=== PATIENT | female | born 2000 | race Caucasian/White ===

== ENCOUNTER 2021-01-14 13:13 | Emergency (ER) | payer OTHER, SELFPAY ==
--- NOTE | 2021-01-14 13:21 | ED.GENADULT ---
HPI - General Adult General Chief complaint: Upper Respiratory Infection Stated complaint: URI Time Seen by Provider: 01/14/21 13:21 Source: patient Mode of arrival: ambulatory Limitations: no limitations History of Present Illness HPI narrative: 20-year-old female patient presents to the [facility] with complaints of cold symptoms that started yesterday. Patient states she has had a runny nose, slight cough and congestion. Patient denies any fevers, body aches or chills. Denies any ear pain. Patient also reports sore throat. Patient denies any abdominal pain, nausea, vomiting or diarrhea. Patient is currently 18 weeks . Patient states she took some [id number] cold and flu medication but not exactly sure what it was. Related Data Home Medications Medication Instructions Recorded Confirmed No Home Medications 01/14/21 01/14/21 Allergies Allergy/AdvReac Type Severity Reaction Status Date / Time No Known Allergies Allergy Verified 01/14/21 13:49 Review of Systems Review of Systems: Narrative: CONSTITUTIONAL: Denies fever, chills, or sweats. EYES: Denies visual changes, redness, or discharge. ENT: Positive rhinorrhea, congestion, sore throat, denies otalgia. CARDIOVASCULAR: Denies chest pain, palpitations, or edema. RESPIRATORY: Positive cough, denies dyspnea. GASTROINTESTINAL: Denies abdominal pain, nausea, vomiting, or diarrhea. GENITOURINARY: Denies dysuria or hematuria. SKIN: Denies rash or itching. MUSCULOSKELETAL: Denies back pain, joint pain, or myalgia. NEUROLOGIC: Denies headache, numbness, or weakness. PSYCHIATRIC: Denies anxiety or depression. PMFSH Past Medical History Medical History (Updated 01/14/21 @ 14:01 by ERIC Ty) Strep pharyngitis Surgical History Surgical History (Updated 01/14/21 @ 13:21 by ERIC Ty) Hx of tonsillectomy Comments At the time of my signature I agree with nursing past medical history, surgical, social, and family history. There is no relevant family history pertinent to the presenting complaint. Exam Narrative: Exam Narrative: GENERAL: Well-appearing, well-nourished, and in no acute distress. HEAD: Normocephalic, atraumatic. EYES: PERRLA and EOMI. ENT: Nares with erythema edema noted bilaterally, no rhinorrhea or epistaxis. Mucous membranes moist. Posterior pharynx no erythema, tonsillectomy, exudates or lesions present. Bilateral TMs are clear no erythema or foreign bodies in the canal. NECK: Supple. No lymphadenopathy CHEST: Clear to auscultation. No respiratory distress. HEART: Regular rate and rhythm. No murmur heard. Normal peripheral pulses. ABDOMEN: Soft, nontender, nondistended, normal active bowel sounds. EXTREMITIES: Normal range of motion. No edema. SKIN: Warm, dry, no rash. NEURO: No focal deficits. Alert and oriented x3. Course Reevaluation(s) Reevaluation #1: Reevaluated patient after swabs are resulted. Notified her that her bedside strep and her influenza are both negative. Discussed with her we will send the Covid PCR to the lab for testing and should receive results in the next 24 to 48 hours. Discussed with patient that she can take tgzy-hdv-[id number] medicine to help with her symptoms and I have provided her a safe uwqg-[id number] med list of things she can take including Claritin and Robitussin for her symptoms as well as Tylenol. Discussed with patient that she should otherwise follow-up with her [employer] or her primary doctor if she has worsening symptoms. Patient verbalized understanding denies any other questions or concerns at this time. Date: 01/14/21 Time: 14:06 Vital Signs Vital signs: Vital Signs Temperature 36.3 C L 01/14/21 13:35 Pulse Rate 87 01/14/21 13:35 Respiratory Rate 16 01/14/21 13:35 Blood Pressure 118/80 01/14/21 13:35 Pulse Oximetry 98 01/14/21 13:35 Temperature 36.3 C L 01/14/21 13:35 Pulse Rate 87 01/14/21 13:35 Respiratory Rate 16
[2021-01-14 13:35] VITALS: BP 118/80; PULSE 87; RESP 16; TEMP 36.3; O2SAT 98
[2021-01-15 19:35] LABS: SARS-CoV-2 RNA PCR Negative
== END 2021-01-14 14:05 | disposition home or self-care (01) ==
PROVIDERS: Emergency Provider Nurse Practitioner Family
DX: J06.9 Acute upper respiratory infection, unspecified (principal); Z20.822 Contact with and (suspected) exposure to COVID-19
CPT/HCPCS: 87081; 87804; 87880; 99213; C9803; G0463; U0003; U0005

== ENCOUNTER 2023-10-14 08:29 | Emergency (ER) | payer OTHER, SELFPAY ==
[2023-10-14 08:38] VITALS: BP 110/74; PULSE 100; RESP 16; TEMP 36.2; O2SAT 96
--- NOTE | 2023-10-14 08:54 | ED.URI ---
HPI - URI/Sore Throat General Chief Complaint: Upper Respiratory Infection Stated Complaint: throat/headache Source: patient and RN notes reviewed Mode of arrival: ambulatory Limitations: no limitations History of Present Illness HPI Narrative: Patient is a 22-year-old female who presents to the [facility] with complaints of sore throat, headache, and nasal drainage. Patient states that her symptoms started yesterday. She denies recent cough or fever. Denies chest pain or shortness of breath. She is unsure of any known sick contacts. She also denies abdominal pain, nausea, vomiting, diarrhea. Patient states that she usually has a sore throat and headache when she has tested positive for COVID in the past. Related Data Home Medications Medication Instructions Recorded Confirmed No Home Medications 01/14/21 10/14/23 Allergies Allergy/AdvReac Type Severity Reaction Status Date / Time No Known Allergies Allergy Verified 10/14/23 08:42 Review of Systems Review of Systems: CONSTITUTIONAL: Denies fever, chills, or sweats. EYES: Denies visual changes, redness, or discharge. ENT: Denies otalgia but reports sore throat CARDIOVASCULAR: Denies chest pain, palpitations, or edema. RESPIRATORY: Denies cough or dyspnea. GASTROINTESTINAL: Denies abdominal pain, nausea, vomiting, or diarrhea. GENITOURINARY: Denies dysuria or hematuria. SKIN: Denies rash or itching. MUSCULOSKELETAL: Denies back pain, joint pain, or myalgia. NEUROLOGIC: Denies numbness or weakness. Reports headache Pertinent positives per HPI. PMFSH Past Medical History Medical History Strep pharyngitis Surgical History Surgical History Hx of tonsillectomy Comments At the time of my signature, I reviewed and agree with the nursing past medical, surgical, social, and family history. There is no relevant family history pertinent to the patient complaint. Exam Narrative: GENERAL: This is a well-nourished, well-developed patient, in no apparent distress. HEAD: normocephalic, atraumatic. EYES: Sclera clear/white. Vision is grossly intact. EARS: External ears normal, auditory canals clear and without drainage, TMs normal without perforation. Hearing grossly intact. NOSE: External nose normal with no obvious nasal discharge, nares without redness, no rhinorrhea. THROAT: Mucous membranes moist, Oropharyngeal erythema without exudate or ulceration NECK: Neck supple, non-tender without lymphadenopathy, masses or thyromegaly. CARDIOVASCULAR: Regular rate and rhythm without murmurs, gallops, or rubs. RESPIRATORY: Clear to auscultation. Breath sounds equal bilaterally. No wheezes, rales, or rhonchi. GASTROINTESTINAL: Abdomen soft, non-tender, nondistended. Bowel sounds are active. No hepato-splenomegaly, or palpable masses. No guarding. SKIN: warm, intact with no suspicious lesions or rash, good texture and turgor. NEURO: awake, alert, and oriented to person, place and time. There were no obvious focal neurologic abnormalities. Course Course Level of Care: Express Care Visit Vital Signs Vital signs: Vital Signs Temperature 97.2 F L 10/14/23 08:38 Pulse Rate 100 10/14/23 08:38 Respiratory Rate 16 10/14/23 08:38 Blood Pressure 110/74 10/14/23 08:38 Pulse Oximetry 96 10/14/23 08:38 Oxygen Delivery Room Air 10/14/23 08:38 Temperature 97.2 F L 10/14/23 08:38 Pulse Rate 100 10/14/23 08:38 Respiratory Rate 16 10/14/23 08:38 Blood Pressure 110/74 10/14/23 08:38 Pulse Oximetry 96 10/14/23 08:38 Oxygen Delivery Room Air 10/14/23 08:38 Reviewed MDM - URI/Sore Throat MDM Narrative Medical decision making narrative: Rapid strep is negative in the office; however we will send to the lab for confirmation; there is a small percentage chance that it can come back positive; if it is, we will call you in 2
== END 2023-10-14 09:09 | disposition home or self-care (01) ==
PROVIDERS: Emergency Provider Nurse Practitioner; PCP Family Medicine
DX: B34.9 Viral infection, unspecified (principal)
CPT/HCPCS: 87081; 87426; 87880; 99213; C9803; G0463

== ENCOUNTER 2024-02-18 18:57 | Emergency (ER) | payer OTHER, SELFPAY ==
[2024-02-18 19:01] VITALS: BP 116/67; PULSE 84; RESP 16; TEMP 36.4; O2SAT 99
--- NOTE | 2024-02-18 19:07 | ED.SKABFB ---
HPI - Skin/Abscess/Foreign Bdy General Chief complaint: Wound/Laceration Stated complaint: Insect Bite Time Seen by Provider: 02/18/24 19:20 Source: patient and RN notes reviewed Mode of arrival: ambulatory Limitations: no limitations History of Present Illness HPI narrative: 23-year-old female presents with concern of for insect bites. She reports she noticed 1 on her leg was tender with a bruise. She is not sure what bit her. She denies any general malaise, fever, chills, redness, warmth, drainage. The by to 3-day-old MD complaint: insect bite/sting Related Data Home Medications Medication Instructions Recorded Confirmed sumatriptan succinate 100 mg tablet mg PO 02/18/24 Allergies Allergy/AdvReac Type Severity Reaction Status Date / Time No Known Allergies Allergy Verified 02/18/24 19:02 Review of Systems Review of Systems: CONSTITUTIONAL: Denies malaise, chills, sweats, or fever. EYES: Denies redness, or discharge. ENT: Denies rhinorrhea, congestion, swollen lips, swollen tongue CARDIOVASCULAR: Denies chest pain, palpitations, or edema. RESPIRATORY: Denies cough or dyspnea. GASTROINTESTINAL: Denies abdominal pain, nausea, vomiting SKIN: Reports four insect bites MUSCULOSKELETAL: Denies joint pain or myalgia. NEUROLOGIC: Denies headache. All systems reviewed & are unremarkable except as noted in HPI and below PMFSH Past Medical History Medical History Strep pharyngitis Surgical History Surgical History Hx of tonsillectomy Comments At time of signature, agree with nursing past medical, surgical, social and family history. There is no relevant family history pertinent to the presenting complaint Exam Narrative: GENERAL: Well-appearing, well-nourished, and in no acute distress. HEAD: Normocephalic, atraumatic. EYES: PERRLA, conjunctivae clear, and EOMI. ENT: Mucous membranes moist. Oropharynx without edema, erythema or lesions. NECK: Supple. No lymphadenopathy CHEST: Clear to auscultation. No respiratory distress. HEART: Regular rate and rhythm. SKIN: Warm, dry. For pinpoint scabbed areas noted on the left side of the body scattered on the left arm and leg. Bite on the left eye is surrounded by an annular area of ecchymosis approximately 4 cm in diameter with a clear center. Inner thigh bite is also surrounded by a smaller in your lower area of ecchymosis with a clear center. No redness, warmth, induration, edema or drainage. NEURO: Alert and oriented x3. PSYCH: Normal mood and affect Course Course Emergency Course: Patient is aware of diagnosis, understands and agrees to treatment plan. Anticipatory guidance given. Patient agrees to follow-up as directed and is aware of reasons to seek care at the emergency department. Portions of this record may have been created with voice recognition software Level of Care: Express Care Visit Vital Signs Vital signs: Vital Signs Temperature 97.6 F 02/18/24 19:01 Pulse Rate 84 02/18/24 19:01 Respiratory Rate 16 02/18/24 19:01 Blood Pressure 116/67 02/18/24 19:01 Pulse Oximetry 99 02/18/24 19:01 Oxygen Delivery Room Air 02/18/24 19:01 Temperature 97.6 F 02/18/24 19:01 Pulse Rate 84 02/18/24 19:01 Respiratory Rate 16 02/18/24 19:01 Blood Pressure 116/67 02/18/24 19:01 Pulse Oximetry 99 02/18/24 19:01 Oxygen Delivery Room Air 02/18/24 19:01 Reviewed. MDM - Skin/Abscess/Foreign Bdy MDM Narrative Medical decision making narrative: Does not appear at this time to be erythema multiforme, bullous, SJS, TEN; no evidence at this time to suggest RMSF, endocarditis or Lyme disease; patient looks well, nontoxic and is tolerating oral intake; no neurologic signs or symptoms; no headache, photophobia or neck pain; afebrile; appropriate for initial outpatient treatment; discussed the importa
== END 2024-02-18 19:30 | disposition home or self-care (01) ==
PROVIDERS: Emergency Provider Nurse Practitioner; PCP Family Medicine
DX: S00.86XA Insect bite (nonvenomous) of other part of head, initial encounter (principal); S40.862A Insect bite (nonvenomous) of left upper arm, initial encounter; S80.862A Insect bite (nonvenomous), left lower leg, initial encounter; W57.XXXA Bitten or stung by nonvenomous insect and other nonvenomous arthropods, initial encounter
CPT/HCPCS: 99211; G0463

== ENCOUNTER 2024-05-19 16:17 | Emergency (ER) | payer OTHER, SELFPAY ==
[2024-05-19 16:21] VITALS: BP 107/69; PULSE 104; RESP 16; TEMP 36.6; O2SAT 99
--- NOTE | 2024-05-19 16:22 | ED.URI ---
HPI - URI/Sore Throat General Chief Complaint: Upper Respiratory Infection Stated Complaint: Cough/Headache Time Seen by Provider: 05/19/24 17:14 Source: patient and RN notes reviewed Mode of arrival: ambulatory Limitations: no limitations History of Present Illness HPI Narrative: 23-year-old female presents with concern for cough for 1 week, headache for 2 days. She reports history of migraines, she took her migraine medicine without relief. She denies nasal congestion, rhinorrhea, sore throat, fever, body aches, chills, sweats, nausea, vomiting, diarrhea MD elicited complaint: cough and other (headache) Related Data Home Medications Medication Instructions Recorded Confirmed sumatriptan succinate 100 mg tablet mg PO 02/18/24 Allergies Allergy/AdvReac Type Severity Reaction Status Date / Time No Known Allergies Allergy Verified 02/18/24 19:02 Review of Systems Review of Systems: CONSTITUTIONAL: Denies malaise, chills, sweats, or fever. EYES: Denies visual changes, redness, or discharge. ENT: Denies rhinorrhea, congestion, sinus pain, otalgia and sore throat. CARDIOVASCULAR: Denies chest pain, palpitations, or edema. RESPIRATORY: Reports cough. Denies dyspnea. GASTROINTESTINAL: Denies abdominal pain, nausea, vomiting, diarrhea SKIN: Denies rash or itching. MUSCULOSKELETAL: Denies myalgia. NEUROLOGIC: Reports headache. All systems reviewed & are unremarkable except as noted in HPI and below PMFSH Past Medical History Medical History Strep pharyngitis Surgical History Surgical History Hx of tonsillectomy Comments At time of signature, agree with nursing past medical, surgical, social and family history. There is no relevant family history pertinent to the presenting complaint Exam Narrative: GENERAL: Well-appearing, well-nourished, and in no acute distress. HEAD: Normocephalic EYES: PERRLA, conjunctivae clear ENT: Nares clear. Mucous membranes moist. TM pearly whitney with dull light reflex bilaterally; no tragal tenderness. Oropharynx not erythematous without lesions. Tonsils not enlarged and without exudate, no drooling, no hoarseness, no trismus, uvula midline. NECK: Supple. No lymphadenopathy CHEST: Clear to auscultation, breath sounds equal. No wheezing, rhonchi, rales, or stridor. No respiratory distress, speaks in full sentences. HEART: Regular rate and rhythm. No murmur heard. SKIN: Warm, dry, no rash. NEURO: Alert and oriented x3. No focal deficits, cranial nerves 2-12 grossly intact PSYCH: Normal mood and affect Course Course Emergency Course: Patient is aware of diagnosis, understands and agrees to treatment plan. Anticipatory guidance given. Patient agrees to follow-up as directed and is aware of reasons to seek care at the emergency department. Portions of this record may have been created with voice recognition software Level of Care: Express Care Visit Vital Signs Vital signs: Vital Signs Temperature 98 F 05/19/24 16:21 Pulse Rate 104 H 05/19/24 16:21 Respiratory Rate 16 05/19/24 16:21 Blood Pressure 107/69 05/19/24 16:21 Pulse Oximetry 99 05/19/24 16:21 Oxygen Delivery Room Air 05/19/24 16:21 Temperature 98 F 05/19/24 16:21 Pulse Rate 104 H 05/19/24 16:21 Respiratory Rate 16 05/19/24 16:21 Blood Pressure 107/69 05/19/24 16:21 Pulse Oximetry 99 05/19/24 16:21 Oxygen Delivery Room Air 05/19/24 16:21 Reviewed. MDM - URI/Sore Throat MDM Narrative Medical decision making narrative: Differential diagnosis considered: Hu virus, strep pharyngitis, allergic rhinitis, upper respiratory tract infection, sinusitis, rhinosinusitis, nasopharyngitis. viral pharyngitis, otitis media, otitis externa, pneumonia, bronchitis, viral cough syndrome, viral syndrome, and influenza. Exam findings show no acute concerns or change
== END 2024-05-19 17:25 | disposition home or self-care (01) ==
PROVIDERS: Emergency Provider Nurse Practitioner
DX: R05.9 Cough, unspecified (principal); G43.909 Migraine, unspecified, not intractable, without status migrainosus
CPT/HCPCS: 99213; G0463

== ENCOUNTER 2024-11-09 08:45 | Emergency (ER) | payer OTHER, SELFPAY ==
--- NOTE | ~2024-11-09 | XR_ITS ---
EXAMINATION: XR chest 2V DATE: 11/09/2024 09:50 INDICATION: Pneumonia exposure TECHNIQUE: PA and lateral views of the chest were obtained. COMPARISON: None FINDINGS: There are patchy airspace opacities in the basilar right lower lobe suspicious for pneumonia. Right l jazzy is clear. No pulmonary edema, pleural effusion or pneumothorax. The cardiomediastinal silhouette is normal. Visualized bones and soft tissues are unremarkable. IMPRESSION: 1. Patchy airspace opacity right lower lobe with appearance favoring pneumonia over atelectasis. Reviewed, dictated and finalized at location A. FILTER OPERATOR
[2024-11-09 08:52] VITALS: BP 110/76; PULSE 122; RESP 18; TEMP 36.7; O2SAT 100
--- NOTE | 2024-11-09 09:19 | ED.URI ---
HPI - URI/Sore Throat General Chief Complaint: Upper Respiratory Infection Stated Complaint: fever/cough/abdo pain Time Seen by Provider: 11/09/24 09:19 Source: patient, RN notes reviewed and old records reviewed Mode of arrival: ambulatory Limitations: no limitations History of Present Illness HPI Narrative: 23-year-old female to Express Care with complaint of headache, cough, nausea, fever, body aches since Friday. Patient reports that her 2 children are currently at home being treated for pneumonia. Patient denies shortness of breath, difficulty swallowing, chest pain, allergies, pertinent medical history. Patient tolerate fluids by mouth. Patient resting in exam room in no acute distress. Respirations even and nonlabored. Patient able to speak in complete sentences without difficulty. Related Data Home Medications ?Medication ?Instructions ?Recorded ?Confirmed ?Last Taken ?Type NO HOME MEDS 11/09/24 Unknown History Allergies Allergy/AdvReac Type Severity Reaction Status Date / Time No Known Allergies Allergy Verified 11/09/24 09:10 Review of Systems Review of Systems: All systems reviewed & are unremarkable except as noted in HPI and below Constitutional: Constitutional: Reports as per HPI, Reports body ache(s), Reports chills, Reports fever(s) and Reports headache(s) Eyes: Eyes: Reports no additional eye complaints ENT: Reports system reviewed and no additional complaints, except as documented Cardiovascular: Cardiovascular: Reports no additional cardiovascular complaints, Denies chest pain and Denies dyspnea Respiratory: Respiratory: Reports as per HPI, Reports cough and Denies dyspnea Gastrointestinal: Gastrointestinal: Reports as per HPI and Reports nausea Musculoskeletal: Musculoskeletal: Reports no additional musculoskeletal complaints Neurologic: Reports system reviewed and no additional complaints, except as documented Psychiatric: Psychiatric: Reports no additional psychiatric complaints PMFSH Past Medical History Medical History Headache Strep pharyngitis Surgical History Surgical History Hx of tonsillectomy Family History Family History Father Alcoholism Hypertension Diabetes mellitus Grandparent Hypertension Diabetes mellitus Depression Social History Social History Smoking status: Never smoker Comments At the time of my signature, I reviewed and agree with the nursing past medical, surgical, social, and family history. There is no relevant family history pertinent to the patient complaint. Exam Const: General: cooperative, no acute distress, alert, tired appearing, uncomfortable and well nourished Nutritional Appearance: well nourished Orientation/consciousness: patient oriented x3 Limitations: no limitations HENMT: Head: normal to inspection Ears: external ears normal Face/Nose/Sinus: Normal external nose present, Normal nares present, normal facial exam, No erythema and No edema Face and sinus: normal facial exam, no erythema and no edema Mouth: Yes Normal oral and palatal mucosa present Eyes: General: appearance normal, both eyes and all related structures Neck: Neck: normal visual inspection, full ROM and no meningeal signs Lymphatic: no lymphadenopathy noted and no lymphedema noted Chest: Chest palpation & inspection: normal inspection of the chest Resp: Effort & Inspection: normal respiratory effort and able to speak in complete sentences Auscultation: clear to auscultation bilaterally and diminished lung sounds on the right Cardio: Jugular venous distension: no JVD Rate: regular rate Rhythm: regular rhythm Back/Spine/Pelvis: Cervical Spine: cervical ROM normal Skin: General skin exam: normal color, no rashes or lesions noted and turgor normal Neuro: General: patient oriented x3, gait normal, moves all extremities and no meningeal signs Speech: normal speech Gait exam (Neuro): Normal gait present Extrem: General: normal to inspection, full ROM and capillary refill normal Psych: Appearance: grossly normal and well kempt Course Course Emergency Course: Some parts of this dictation were generated by voice recognition software and may contain typographical and/or grammatical inaccuracies. Level of Care: Express Care Visit Vital Signs Vital signs: Vital Signs Temperature 36.7 C 11/09/24 08:52 Pulse Rate 122 H 11/09/24 08:52 Respiratory Rate 18 11/09/24 08:52 Blood Pressure 110/76 11/09/24 08:52 Pulse Oximetry 100 11/09/24 08:52 Oxygen Delivery Room Air 11/09/24 08:52 Temperature 36.7 C 11/09/24 08:52 Pulse Rate 122 H 11/09/24 08:52 Respiratory Rate 18 11/09/24 08:52 Blood Pressure 110/76 11/09/24 08:52 Pulse Oximetry 100 11/09/24 08:52 Oxygen Delivery Room Air 11/09/24 08:52 reviewed MDM - URI/Sore Throat MDM Narrative Medical decision making narrative: 23-year-old female to Express Care with complaint of headache, cough, nausea, fever, body aches since Friday. Patient reports that her 2 children are currently at home being treated for pneumonia. Patient denies shortness of breath, difficulty swallowing, chest pain, allergies, pertinent medical history. Patient tolerate fluids by mouth. Patient resting in exam room in no acute distress. Respirations even and nonlabored. Patient able to speak in complete sentences without difficulty. On exam, decreased lower right lung sounds. Exam otherwise unremarkable. Radiology impression: Patchy airspace opacity right lower lobe with appearance favoring pneumonia over atelectasis. Patient is sitting comfortably in exam room nontoxic in appearance. Patient appropriate for outpatient treatment and follow-up. Discharge instructions reviewed with patient, as well as provided in writing per nursing staff. The instructions also include specific and strict return/GO TO THE ER as well as f/u information. All questions have been answered, and the patient deny any further questions with discharge and discharge plan. Some parts of this dictation were generated by voice recognition software and may contain typographical and/or grammatical inaccuracies. Differential Diagnosis Differential diagnosis: Likely upper respiratory infection, croup, otitis media, sinusitis, viral infection, bronchitis, influenza and pharyngitis Lab Data Labs: Lab Results 11/09/24 Range/Units 09:36 POC Urine HCG, Qual Negative (Negative) Imaging Data Radiologist's impression: EXAMINATION: XR chest 2V DATE: 11/09/2024 09:50 INDICATION: Pneumonia exposure TECHNIQUE: PA and lateral views of the chest were obtained. COMPARISON: None FINDINGS: There are patchy airspace opacities in the basilar right lower lobe suspicious for pneumonia. Right lung is clear. No pulmonary edema, pleural effusion or pneumothorax. The cardiomediastinal silhouette is normal. Visualized bones and soft tissues are unremarkable. IMPRESSION: 1. Patchy airspace opacity right lower lobe with appearance favoring pneumonia over atelectasis. Discharge Plan Discharge Clinical Impression: Pneumonia Patient Disposition: Home, Self-Care Condition: Stable Instructions: Pneumonia (ED) Additional Instructions: -Alternate Tylenol and Motrin per package directions for fever or pain. -Antihistamine medication such as Benadryl at night and Zyrtec/Claritin/Taty during the day can help improve symptoms. -Use Flonase twice a day for 5 days then daily to help reduce the inflammation and dry up your sinuses. -You can also use Sudafed or Mucinex. Be sure to drink plenty of water with these medications at least 8 ounces with every dose and it is important to drink 8 to 10 glasses of water per day. Water is a natural decongestant -Eat and drink things that are easy to swallow, like tea or soup, or popsicles. -Oral rinses such as: Salt water gargles and/or may use topical anesthetic (eg. Chloraseptic spray) or lozenges to relieve dryness or throat pain). -Frequent hand washing or hand tension worker is one of the best ways to prevent spread of infection. -Using a vaporizer or humidifier at night will also help thin secretions and help with coughing up phlegm. -Follow up with primary care provider in 2-3 days if condition is not improving; or seek ER visit if you have trouble breathing, cannot drink enough fluids, have muffled voice, difficulty opening your mouth, or severe swelling. Patient Language: Serbian Prescriptions: New azithromycin 250 mg tablet 250 mg PO DAILY Qty: 6 0RF Rx Instructions: 250 mg orally. Take TWO tablets today, then one tablet daily for 4 days. amoxicillin 875 mg tablet 875 mg PO Q12H Qty: 20 0RF No Action NO HOME MEDS Follow-up/Referrals: Nereida Smith MD [Primary Care Provider] - Stand Alone Forms: Work/School Release IP
[2024-11-09 09:43] LABS: BEDSIDEPREGUCG Negative (Negative)
== END 2024-11-09 10:05 | disposition home or self-care (01) ==
PROVIDERS: Emergency Provider Nurse Practitioner Family; PCP Family Medicine
DX: J18.9 Pneumonia, unspecified organism (principal)
CPT/HCPCS: 71046; 81025; 99213; G0463

== ENCOUNTER 2025-02-09 12:37 | Outpatient (CLI) | payer OTHER, SELFPAY ==
[2025-02-09 13:27] LABS: Alanine Aminotransferase 13 U/L (6-35); Albumin Level 4.3 g/dL (3.5-5.1); Alkaline Phosphatase 60 U/L (38-126); Anion Gap 9 mmol/L (4-12); Aspartate Amino Transferase 17 U/L (14-36); Bilirubin,Total 0.9 mg/dL (0.2-1.3); Blood Urea Nitrogen 11 mg/dL (7-17); Calcium 9.1 mg/dL (8.4-10.2); Carbon Dioxide 29 mmol/L (22-30); Chloride 105 mmol/L (98-107); Estimated Glomerular Filt Rate > 60; Glucose 79 mg/dL (65-110); Potassium 4.5 mmol/L (3.4-5.0); Sodium 143 mmol/L (137-145)
[2025-02-09 13:34] LABS: SPREG INTERNAL CONTROL Positive; Serum Qual hCG Negative
--- OUTSIDE RECORDS SUMMARY | 2025-02-09 13:53 | XMS_ITS | Clinical Summary ---
Author Organization [facility] Address [address] [place] [address] Care Team Providers Care Mixer Operator Vacuum Pan Salt Name Role Phone No, Physician Unavailable Contreras Jung MD Primary Care Provider [phone]- [phone] Allergies No known active allergies Medications SUMAtriptan (IMITREX) 100 mg tablet TAKE 1 TABLET EVERY DAY BY ORAL ROUTE NEEDED FOR 9 DAYS. 4 Active rizatriptan ARTIFICIAL FLOWERS STARCHER (MAXALT-ARTIFICIAL FLOWERS STARCHER) 10 mg disintegrating tablet DISSOLVE 1 TABLET ON TONGUE AND SWALLOW EVERY DAY DIRECTED FOR 9 DAYS 4 Active ergocalciferol (Vitamin D2) 50,000 unit capsuleIndications: Vitamin D Deficiency Take 1 capsule (50,000 Units total) by mouth once a week 12 capsule 4 Active norethindrone-e.est radioL-iron (LOESTIN 24 FE) 1 mg-20 mcg (24)/75 mg (4) per tablet Take 1 tablet by mouth daily 84 tablet 2 4 07/14/20 25 Active montelukast (SINGULAIR) 10 mg tablet Take 1 tablet (10 mg total) by mouth nightly at bedtime. 4 Active Active Problems Problem Noted Date Diagnosed Date Anxiety and depression 10/18/2022 Acne 09/20/2014 Resolved Problems Problem Noted Date Diagnosed Date Resolved Date Positive GBS test 04/22/2019 01/15/2021 Vaginal delivery 01/15/2021 38 weeks gestation of 01/15/2021 Vaginal delivery 07/30/2021 39 weeks gestation of 07/30/2021 Immunizations Immunization Administration Dates Next Due MMR 06/16/2021 Tdap 04/06/2021,03/29/2019 Surgical History Surgery Date Site/Laterality Comments STOMACH SURGERY had a quarter removed from her stomach TONSILLECTOMY 12/01/2006 - 11/30/2007 Family History Medical History Relation Name Comments Kidney disease Father Marbin Relation Name Status Comments Father Marbin Alive Stage 3 Kidney Failure Social History Tobacco Use Types Packs/Day Years Used Date Smoking Tobacco: Never Smokeless Tobacco: Never Tobacco Cessation:Counseling Given: Not Answered Alcohol Use Standard Drinks/Week Comments Not Currently 0 (1 standard drink = 0.6 oz pur e alcohol) AUDIT-C Answer Date Recorded Q1: How often do you have a drink containing alc ohol? Never 05/15/2021 Average Number of Drinks Not on file 021 Q3: How often do you have si x or more drinks on one occasion? Never 05/15/2021 PHQ-2 Answer Date Recorded PHQ-2 Total Score (If total score is 3 or more points, staff should administer the PHQ-9) 0 03/08/2024 Personal Safety Answer Date Recorded Getting School Help Needed Not on file 02/09 Comments No Sex and Gender Information Value Date Recorded Sex Assigned at Not on file Legal Sex Female 9:53 AM SHEEP OR CALF GRADER Gender Identity Not on file Sexual Orientation Not on file Obstetrics History Para Term AB IAB SAB Ectopic Multiple Livin g Live Births 2 2 2 0 0 0 0 0 0 2 2 Date Outcome GA Total Labor Labor/2nd/3rd Weight Sex Type Anes PTL Ayah A1 A5 Name Clin 2018 Term 38w 6d 4h 50m 3h 16m/1h 29m/0h 05m 2.726 kg (6 lb 0.2 oz) M Vag-S pont Epidur al Livin g 8 9 MONTRELL DELGADO Joseph Mark, MD Complications:None Delivery Location:[facility] ([facility]) 2020 Term 39w 0d 2h 00m 1h 10m/0h 45m/0h 05m 2.884 kg (6 lb 5.7 oz) F Vag-S pont Epidur al N Livin g 8 9 FABRIZIO DELGADO Joseph Mark, MD Complications:None Delivery Location[facility] ([facility]) Last Filed Vital Signs Vital Sign Reading Time Taken Comments Blood Pressure 110/72 09/22/2024 6:01 PM CDT Pulse 75 09/22/2024 6:01 PM CDT Temperature 36.2 C (97.2 F) 09/22/2024 6:01 PM CDT Respiratory Rate 14 09/22/2024 6:01 PM CDT Oxygen Saturation 99% 09/22/2024 6:01 PM CDT Inhaled Oxygen Concentration - - Weight 73 kg (161 lb) 09/22/2024 6:01 PM CDT Height 167.6 cm (5' 6 ) 09/22/2024 6:01 PM CDT Body Mass Index 25.99 09/22/2024 6:01 PM CDT Plan of Treatment Health Maintenance Due Date Last Done Comments Influenza Vaccine (#1) 2024 8, 09/12/2016, 09/26/2015, Additional history exists Cervical Cancer Screening 03/08/20252023, 10/18/2022, 12/12/2020 Depression Screening 03/08/2025 03/08/2024, 10/18/2022, 10/18/2022, Additional history exists Regular Well Visit/Exam 18-64 03/08/2025 03/08/2024, 10/18/2022 DTaP/Tdap/Td Vaccine (9 - Td or Tdap) 04/06/2031 04/06/2021, 03/29/2019, 08/22/2009, Additional history exists Hepatitis B Screening Completed 03/22/2002 , 09/25/1999, 01/17/1999, Additional history exists Varicella Vaccines Completed 08/13/2008, 03/22/2002 HPV Vaccines Completed 10/14/2016, 01/2016, 12/19/2015 Hepatitis C Screening Completed 01/31/2021, 018 Pneumococcal vaccine <65 Aged Out No longer eligible based on patient's age to complete this topic Procedures Procedure Name Priority Date/Time Associated Diagnosis Comments PAP AND HPV, REFLEX TO HPV GENOTYPES Routine 03/08/2024 2:30 PM CDT Well woman exam HEPATITIS C ANTIBODY Routine 01/31/2021 2:47 PM SHEEP OR CALF GRADER Encounter for supervision of other normal in first trimester 12 weeks gestation of from Last 3 Months or Most Recently Relevant to Health Maintenance Results * Pap and HPV, reflex to HPV Genotypes (03/08/2024 2:30 PM CDT) CLINICAL INFORMATION: [facility] Comment:Routine exam LMP [facility] Comment:[phone] Previous Pap [facility] Comment:NONE GIVEN Prev. Bx [facility] Comment:NONE GIVEN SOURCE: [facility] Comment:Cervix, Endocervix Pap, specimen adequacy [facility] Comment: Satisfactory for evaluation. Endocervical/transformation zone component present. HPV interp [facility] Comment: Cytology Results: Negative for intraepithelial lesion or malignancy. COMMENTS [facility] Comment: This Pap test has been evaluated with computer assisted technology. Container Packer Operator [facility] Comment: MMD, CT(ASCP) CT Screening Location: [place] [address] Comment [facility] Comment: EXPLANATORY NOTE: The Pap is a screening test for cervical cancer. It is not a diagnostic test and is subject to false negative and false positive results. It is most reliable when a satisfactory sample, regularly obtained, is submitted with relevant clinical findings and history, and when the Pap result is evaluated along with historic and current clinical information. Human papillomavirus DNA, High Risk E6/E7 Not Detected NOT DETECTED [facility] /Wendy LACEY Comment: Not Detected High Risk HPV types (16,18,31,33,35,39,45,51,52, 56,58,59,66,68) were not detected. Other HPV types which cause anogenital lesions may be present. The significance of the other types of HPV in malignant processes has not been established. Methodology: Real Time PCR Thin prep 03/08/2024 2:30 PM CDT 03/09/2024 1:30 AM CDT Carmenza Grady RING MAKER LAB CYTOLOGY ORDERABLES Final Re [facility] [address] [place] [address] [facility] [address] [place] [address] * Hepatitis C antibody (01/31/2021 2:47 PM SHEEP OR CALF GRADER) Hep C Ab Nonreactive Nonreactive [facility] ([facility]) Comment: Interpretive Data Nonreactive: Antibodies to HCV not detected. Does NOT exclude the possibility of recent exposure to HCV. Equivocal: Equivocal for HCV antibodies. Supplemental molecular testing will be automatically performed to determine infection status in accordance with current CDC screening recommendations. Reactive: Positive for HCV antibodies. This may represent current or past HCV infection. Supplemental molecular testing will be automatically performed to determine current infection status in accordance with current CDC screening recommendations. Interpretive data was last revised on 2020. Testing performed by: [facility], [address] [place] [address]., [address] Blood specimen (specimen) 01/31/2021 2:47 PM SHEEP OR CALF GRADER 02/01/2021 9:25 AM SHEEP OR CALF GRADER Chanda Ivory RING MAKER LAB MICROBIOLOGY - GENERA L ORDERABLES Final Result [facility] (BLANCA) 1 [facility] Department [place] [address] from Last 3 Months or Most Recently Relevant to Health Maintenance Insurance [facility] MEDICAID [employer] [facility] BENEFITS [facility] Advance Directives For more information, please contact: [phone] * Full Code (Latest Code Status on File) Date Activated Date Inactivated Comments 06/15/2021 6:08 AM 06/17/2021 1:17 AM Full CPR in case of cardiopulmonary arrest * Full Code Date Activated Date Inactivated Comments 05/14/2019 5:57 PM 05/16/2019 5:50 PM * Full Code Date Activated Date Inactivated Comments 05/14/2019 5:09 PM 05/14/2019 5:57 PM Full CPR in case of cardiopulmonary arrest * Full Code Date Activated Date Inactivated Comments 05/14/2019 12:59 AM 05/14/2019 5:09 PM Full CPR in case of cardiopulmonary arrest Care Teams Mixer Operator Vacuum Pan Salt Relationship Specialty Start Date End Date Contreras Jung MD [facility] [place] [address] PCP - General Family Medicine 02/25/24 No, Physician 05/15/21
--- OUTSIDE RECORDS SUMMARY | 2025-02-09 13:53 | XMS_ITS | Referral Summary ---
Author Organization [facility] Address [address] [place] [address] Care Team Providers Care Manager Roofing Name Role Phone No, Physician Unavailable Contreras Jung MD Primary Care Provider [phone]- [phone] Allergies No known active allergies Medications SUMAtriptan (IMITREX) 100 mg tablet TAKE 1 TABLET EVERY DAY BY ORAL ROUTE NEEDED FOR 9 DAYS. 4 Active rizatriptan JACK STRIP ASSEMBLER (MAXALT-JACK STRIP ASSEMBLER) 10 mg disintegrating tablet DISSOLVE 1 TABLET [...] Dates Next Due MMR 06/16/2021 Tdap 04/06/2021,03/29/2019 Social History Tobacco Use Types Packs/Day Years [...] on file Legal Sex Female 9:53 AM PASTE UP COPY CAMERA OPERATOR Gender Identity Not on file Sexual Orientation Not on file Last Filed Vital Signs Vital Sign Reading [...] 09/22/2024 6:01 PM CDT Plan of Treatment Not on file Procedures Procedure Name Priority Date/Time Associated Diagnosis Comments PAP AND HPV, REFLEX TO HPV GENOTYPES Routine 03/08/2024 2:30 PM CDT Well woman exam HEPATITIS C ANTIBODY Routine 01/31/2021 2:47 PM PASTE UP COPY CAMERA OPERATOR Encounter for supervision of other normal in first trimester 12 weeks gestation of from Last 3 Months or Most Recently Relevant to Health Maintenance Results * Pap and HPV, reflex to HPV Genotypes (03/08/2024 2:30 PM CDT) CLINICAL INFORMATION: [facility] Comment:Routine exam LMP [facility] Comment:[phone] Previous Pap [facility] Comment:NONE GIVEN Prev. Bx [facility] Comment:NONE GIVEN SOURCE: [facility] Comment:Cervix, Endocervix Pap, specimen adequacy [facility] Comment: Satisfactory for evaluation. Endocervical/transformation zone component present. HPV interp [facility] Comment: Cytology Results: Negative for intraepithelial lesion or malignancy. COMMENTS [facility] Comment: This Pap test has been evaluated with computer assisted technology. Gunner'S Mate M [facility] Comment: MMD, CT(ASCP) CT Screening Location: [address], [place] [address] Comment [facility] Comment: EXPLANATORY NOTE: The Pap is a [...] High Risk E6/E7 Not Detected NOT DETECTED [facility] [place] [facility] [place] Comment: Not Detected High Risk HPV types (16,18,31,33,35,39,45,51,52, 56,58,59,66,68) were not detected. Other HPV types which cause anogenital lesions may be present. The significance of the other types of HPV in malignant processes has not been established. Methodology: Real Time PCR Thin prep 03/08/2024 2:30 PM CDT 03/09/2024 1:30 AM CDT Carmenza Grady HUSBANDRY PERSON LAB CYTOLOGY ORDERABLES Final Re sult [place] [address] [place] [address] Serious [place]/W[facility] [address] [place] [address] * Hepatitis C antibody (01/31/2021 2:47 PM PASTE UP COPY CAMERA OPERATOR) Hep C Ab Nonreactive Nonreactive CARMEN BRADY [...] revised on 2020. Testing performed by: [facility], [address] [place] [address]., [address] Blood specimen (specimen) 01/31/2021 2:47 PM PASTE UP COPY CAMERA OPERATOR 02/01/2021 9:25 AM PASTE UP COPY CAMERA OPERATOR Chanda Ivory HUSBANDRY PERSON LAB MICROBIOLOGY - GENERA L ORDERABLES Final Result [facility]Y (BLANCA) 1 [facility] Department [place] [address] from Last 3 Months or Most Recently Relevant to Health Maintenance Insurance [facility] MEDICAID IDPA [facility] BENEFITS [facility] Advance Directives For more information, please contact: [phone] * Full Code (Latest Code Status on [...] in case of cardiopulmonary arrest Care Teams Manager Roofing Relationship Specialty Start Date End Date Contreras Jung MD [address] [place] [address] [place] [address] PCP - General Family Medicine 02/25/24 No, Physician 05/15/21
--- OUTSIDE RECORDS SUMMARY | 2025-02-09 13:53 | XMS_ITS | Clinical Summary ---
Author Organization [facility] Address [address] [place] [address] Phone Care Team Providers Care Powerhouse Laborer Name Role Phone Keisha Randhawa MD Primary Care Provider Allergies No known active allergies Medications No known medications Active Problems No known active problems Social History Tobacco Use Types Packs/Day Years Used Date Smoking Tobacco: Never Smokeless Tobacco: Never Tobacco Cessation:Counseling Given: Not Answered Alcohol Use Standard Drinks/Week Comments Not Currently 0 (1 standard drink = 0.6 oz pur e alcohol) Sexually Active Control Partners Comments Not Currently Comments No Sex and Gender Information Value Date Recorded Sex Assigned at Not on file Legal Sex Female 7:19 PM CDT Gender Identity Not on file Sexual Orientation Not on file Last Filed Vital Signs Vital Sign Reading Time Taken Comments Blood Pressure 98/78 03/18/2023 8:24 AM CDT Pulse 106 03/18/2023 8:24 AM CDT Temperature 37.1 C (98.8 F) 03/18/2023 8:24 AM CDT Respiratory Rate 14 03/18/2023 8:24 AM CDT Oxygen Saturation 98% 03/18/2023 8:24 AM CDT Inhaled Oxygen Concentration - - Weight 64.4 kg (142 lb) 03/18/2023 8:24 AM CDT Height - - Body Mass Index - - Plan of Treatment Health Maintenance Due Date Last Done Comments Hepatitis C Virus (HCV) Screening 1998 Pap Smear 2019 Influenza Immunization (#1) 08/01/202410/31, 08/31/2018, 09/12/2016, Additional history exists SARS-COV-2 Immunization (2023-25 season) 2024 Respiratory Syncytial Virus (RSV) Immunization (Adult) (1 - 1-dose 75+ series) 2073 Hepatitis B Immunization Completed 002, 09/25/1999, 01/17/1999, Additional history exists Meningococcal Immunization (ACWY) Completed 12/19/2015, 08/10/2010 Human Papillomavirus (HPV) Immunization Completed 10/14/2016, 05/02/2016, 12/19/2015 DTaP/Tdap/Td Immunization Discontinued 2020, 03/29/2019, 08/22/2009, Additional history exists TdaP Immunization Completed 04/06/2021, , 08/22/2009 Pneumococcal Immunization Combined Aged Out No longer eligible based on patient's age to complete this topic Rotavirus Immunization Aged Out No lo nger eligible based on patient's age to complete this topic Insurance MEDICAID [employer] Care Teams Powerhouse Laborer Relationship Specialty Start Date End Date Keisha Randhawa MD [address] [facility] [facility] [address] G[address]IA [address] [place] [id number] PCP - General Pediatrics 11/10/18
== END 2025-02-09 12:38 | disposition home or self-care (01) ==
LOC: ANHLAB 12:38
PROVIDERS: PCP Family Medicine; Visit Provider Family Medicine
DX: R10.9 Unspecified abdominal pain (principal)
CPT/HCPCS: 36415; 80053; 84703

== ENCOUNTER 2025-06-27 08:01 | Emergency (ER) | payer OTHER, SELFPAY ==
[2025-06-27 08:06] VITALS: BP 104/69; PULSE 81; RESP 20; TEMP 36.6; O2SAT 100
--- OUTSIDE RECORDS SUMMARY | 2025-06-27 08:07 | XMS_ITS | Clinical Summary ---
Author Organization [facility] Address [address] [place] [address] Phone Care Team Providers Care Epic Cadence Specialists Name Role Phone Keisha Randhawa MD Primary [...] Comments Hepatitis C Virus (HCV) Screening 1998 SARS-COV-2 Immunization ( season) 2024 Influenza Immunization (#1) 08/01/202510/31, 08/31/2018, 09/12/2016, Additional history exists Respiratory Syncytial Virus (RSV) Immunization (Adult) (1 [...] Insurance MEDICAID [employer] Care Teams Epic Cadence Specialists Relationship Specialty Start Date End Date Keisha Randhawa MD [address] [facility] [address] G[address]IA [address] [place] [address] PCP - General Pediatrics 11/10/18
--- OUTSIDE RECORDS SUMMARY | 2025-06-27 08:07 | XMS_ITS | Data Portability ---
Author Organization [facility] [address], Main Office Address [address] [place] [address] Assessment No assessment recorded. Plan of Treatment Reminders Order Date Submit Date Provider Last Modified By Organization Details Last Modified Time Details Appointments None recorded. Lab None recorded. Referral None recorded. Procedures None recorded. Surgeries None recorded. Imaging XR, thoracic spine, 2 view 2022 023 [facility], [address] [place] [address] [place], [address], 3 14:58:15 XR, lumbosacral spine, 2 or 3 view 2022 023 [facility], [address] [place] [address] [place], [address], 3 14:56:40 Medication Orders Benadryl Allergy 25 mg tablet 2023 024 [facility] [address], [address], 4 11:39:41 Depo-Medrol 80 mg/mL suspension for injection 2023 024 [email or web address] Not available 4 11:47:53 prednisone 20 mg tablet 2023 024 [facility] [address], [address], 4 11:40:09 sumatriptan 100 mg tablet 2023 024 shaheed [address] [facility] [address], [address], 4 16:41:15 rizatriptan 10 mg disintegrat ing tablet [email or web address] [facility] [address], [address], 4 08:55:45 cyclobenzap rine 10 mg tablet 2022 023 [email or web address] 3 [id number], [address] , [place], [address], 3 06:39:57 Patient TargetsNo targets recorded. Patient InstructionsNo instructions recorded. Reason for Referral None Reported. Results Created Date Observation Date Name Description Value Unit Range Abnormal Flag Note LastModifiedBy Organization Detail LastModifiedTime 02/25/20 23 XR, thora cic spine , 3 view [facility] [address] [address] Patien t Name: JOSETTE DELGADO ion #: [id number] Sex: F : 2000 2 Locati on: RA2 Attend ing Physic jerry: ELKHAT IB, RUNDA Orderi Physic jerry: ELKHAT IB, RUNDA Exam Date: 023 1:25 PM Exam Name: XR T SPINE 3V Admitt ing Diagno sis(es ): RADIOL OGY REPORT - FINAL EXAM: XR T SPINE 3V HISTOR Y: pain 22-yea r-old female with mid to low back pain for the past 2 years after epidur al inject ion, no known injury . COMPAR BENNY: None availa ble. TECHNI QUE: Three views of the thorac ic spine were perfor med. FINDIN GS: No fractu re, listhe sis, or scolio sis are identi fied about the thorac ic spine. No signif icant degene rative change s. IMPRES CELSO: Unrema rkable radiog raphs of the thorac ic spine. Page 1 of 2 [facility] Brown dyer Name: JOSETTE DELGADO Access ion #: [id number] Sex: F : 2000 2 Exam Date: 023 1:25 PM Exam Name: XR T SPINE 3V Admitt ing Diagno sis(es ): Create d and electr onical ly signed by: Saeid english MD Signed Date: 023 1:53 PM (CT) Dictat ed by: Saeid english MD DD: 1:53 PM (CT) DT: 1:53 PM (CT) Page 2 of [address] (Imaging) [address] [place], [address], 02/24/2023 19:09:31 02/25/20 23 XR, thora cic spine , 3 view [facility] [address] [place] [address] [phone] Brown dyer Name: JOSETTE DELGADO Access ion #: [id number] Sex: F : 2000 2 Locati on: RA2 Attend ing Physic jerry: ELKHAT IB, RUNDA Orderi Physic jerry: ELKHAT IB, RUNDA Exam Date: 023 1:25 PM Exam Name: XR T SPINE 3V Admitt ing Diagno sis(es ): RADIOL OGY REPORT - FINAL EXAM: XR T SPINE 3V HISTOR Y: pain 22-yea r-old female with mid to low back pain for the past 2 years after epidur al inject ion, no known injury . COMPAR BENNY: None availa ble. TECHNI QUE: Three views of the thorac ic spine were perfor med. FINDIN GS: No fractu re, listhe sis, or scolio sis are identi fied about the thorac ic spine. No signif icant degene rative change s. IMPRES CELSO: Unrema rkable radiog raphs of the thorac ic spine. Page 1 of 2 [facility] [place] Brown dyer Name: JOSETTE DELGADO Access ion #: [id number] Sex: F : 2000 2 Exam Date: 023 1:25 PM Exam Name: XR T SPINE 3V Admitt ing Diagno sis(es ): Create d and electr onical ly signed by: Saeid english MD Signed Date: 023 1:53 PM (CT) Dictat ed by: Saeid english MD DD: 1:53 PM (CT) DT: 1:53 PM (CT) Page 2 of [address] (Imaging) [address] [place] [address], [address], 02/24/2023 19:09:31 02/25/20 23 XR, lumbo sacra l spine , 2 or 3 view [facility] L [address] [address] [phone] Brown dyer Name: JOSETTE DELGADO Access ion #: [id number] Sex: F : 2000 2 Locati on: RA2 Attend ing Physic jerry: ELKHAT IB, RUNDA Orderi Physic jerry: ELKHAT IB, RUNDA Exam Date: 023 1:25 PM Exam Name: XR L SPINE 2-3V Admitt ing Diagno sis(es ): RADIOL OGY REPORT - FINAL EXAM: XR L SPINE 2-3V HISTOR Y: pain 22-yea r-old female with low back pain for 2 years which began after epidur al inject ion, no recent injury . COMPAR BENNY: None availa ble. TECHNI QUE: AP and latera l views of the lumbar spine and spot latera l of the lumbos acral juncti on were perfor med. FINDIN GS: No fractu re or listhe sis of the lumbar spine. No signif icant degene rative change s. There is slight lumbar levosc oliosi s which may be positi onal in nature . Page 1 of 2 [facility] Patien t Name: JOSETTE DELGADO Access ion #: [id number] Sex: F : 2000 2 Exam Date: 023 1:25 PM Exam Name: XR L SPINE 2-3V Admitt ing Diagno sis(es ): IMPRES CELSO: No fractu re or signif icant degene rative change s about the lumbar spine. Create d and electr onical ly signed by: Saeid english MD Signed Date: 023 1:53 PM (CT) Dictat ed by: Saeid english MD DD: 023 1:53 PM (CT) DT: 1:53 PM (CT) Page 2 of [address] (Imaging) [address] [place], [address], 02/24/2023 19:09:32 02/25/20 23 02/24/2023 XR, thora cic spine , 2 view No observ ation record ed. [address] [place], [address], 02/24/2023 19:09:32 02/25/20 23 02/24/2023 XR, lumbo sacra l spine , 2 or 3 view No observ ation record ed. [email or web address] [facility] [address] [place] [address], [place], [address], 02/27/2023 09:02:56 Result Notes Documentation Provider Name and Address Organization Details Recorded Time Xr, Thoracic Spine, 3 View : [facility] [address] [place] [address] Patient Name: JOSETTE DELGADO Sex: F : 2000 Location: RA2 Attending Physician: CONTRERAS OLIVAS Ordering Physician: CONTRERAS OLIVAS Exam Date: 02/24/2023 1:25 PM Exam Name: XR T SPINE 3V Admitting Diagnosis(es): RADIOLOGY REPORT - FINAL EXAM: XR T SPINE 3V HISTORY: pain 22-year-old female with mid to low back pain for the past 2 years after epidural injection, no known injury. COMPARISON: None available. TECHNIQUE: Three views of the thoracic spine were performed. FINDINGS: No fracture, listhesis, or scoliosis are identified about the thoracic spine. No significant degenerative changes. IMPRESSION: Unremarkable radiographs of the thoracic spine. Page 1 of 2 [facility] Patient Name: JOSETTE DELGADO Sex: F : 2000 Exam Date: 02/24/2023 1:25 PM Exam Name: XR T SPINE 3V Admitting Diagnosis(es): Created and electronically signed by: Saeid Vargas MD Signed Date: 02/24/2023 1:53 PM (CT) Dictated by: Saeid Vargas MD (CT) (CT) Page 2 of 2 Contreras Jung MD [address], [address], [facility] 02/24/2023 19:09:31 Xr, Thoracic Spine, 3 View : [facility] [address] [place] [address] Patient Name: JOSETTE DELGADO Sex: F : 2000 Location: [facility] Attending Physician: CONTRERAS OLIVAS Ordering Physician: CONTRERAS OLIVAS Exam Date: 02/24/2023 1:25 PM Exam Name: XR T SPINE 3V Admitting Diagnosis(es): RADIOLOGY REPORT - FINAL EXAM: XR T SPINE 3V HISTORY: pain 22-year-old female with mid to low back pain for the past 2 years after epidural injection, no known injury. COMPARISON: None available. TECHNIQUE: Three views of the thoracic spine were performed. FINDINGS: No fracture, listhesis, or scoliosis are identified about the thoracic spine. No significant degenerative changes. IMPRESSION: Unremarkable radiographs of the thoracic spine. Page 1 of 2 [facility] Patient Name: JOSETTE DELGADO Sex: F : 2000 Exam Date: 02/24/2023 1:25 PM Exam Name: XR T SPINE 3V Admitting Diagnosis(es): Created and electronically signed by: Saeid Vargas MD Signed Date: 02/24/2023 1:53 PM (CT) Dictated by: Saeid Vargas MD (CT) (CT) Page 2 of 2 Contreras Jung MD [address] [place] [address], [address], [facility] 02/24/2023 19:09:31 Xr, Lumbosacral Spine, 2 Or 3 View : [address] [address] Patient Name: JOSETTE DELGADO Sex: F : 2000 Location: [facility] Attending Physician: CONTRERAS OLIVAS Ordering Physician: CONTRERAS OLIVAS Exam Date: 02/24/2023 1:25 PM Exam Name: XR L SPINE 2-3V Admitting Diagnosis(es): RADIOLOGY REPORT - FINAL EXAM: XR L SPINE 2-3V HISTORY: pain 22-year-old female with low back pain for 2 years which began after epidural injection, no recent injury. COMPARISON: None available. TECHNIQUE: AP and lateral views of the lumbar spine and spot lateral of the lumbosacral junction were performed. FINDINGS: No fracture or listhesis of the lumbar spine. No significant degenerative changes. There is slight lumbar levoscoliosis which may be positional in nature. Page 1 of 2 [facility] Patient Name: JOSETTE DELGADO Sex: F : 2000 Exam Date: 02/24/2023 1:25 PM Exam Name: XR L SPINE 2-3V Admitting Diagnosis(es): IMPRESSION: No fracture or significant degenerative changes about the lumbar spine. Created and electronically signed by: Saeid Vargas MD Signed Date: 02/24/2023 1:53 PM (CT) Dictated by: Saeid Vargas MD (CT) (CT) Page 2 of 2 Contreras Jung MD [address], [place], [address], [facility] [employer] 02/24/2023 19:09:32 Problems Name Problem SNOMED Code Status Onset Date Resolution Date Notes Provider Name and Address Organization Details Recorded Time Depressive disorder 13651319 Active 023 HARI Wilder, [place] [facility] [employer] [facility] 3 13:56:46 Anxiety 79419808 Active 023 HARI Wilder null, [employer] [facility] [employer] [facility] 3 13:56:52 Thoracic back pain 568666290 Active 023 Contreras Jung MD [address], [address], [place], [address], [employer] [facility] [employer] [facility] 3 14:10:50 Low back pain 259515225 Active 023 Contreras Jung MD [address], [place], [address], [employer] [facility] [employer] [facility] [employer] 3 14:10:59 Chronic low back pain 182359923 Active 023 Amarjit Cloud RN null, [employer] [facility] [employer] [facility] [employer] 3 09:03:09 Headache 97821450 Active 024 JOANN Malloy [address], [address], [place], [address], [employer] [facility] 4 10:09:10 Nausea 387971738 Active 024 JOANN Malloy [address], [address], [place], [address], [employer] 4 22:16:34 Insect bite - wound 691704601 Active 024 JOANN Malloy [address], [place], [address], [employer] 4 11:36:42 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 Procedures Surgical History Date Name Laterality Status Provider Name and Address Organization Details Recorded Time Tonsillectomy completed HARI Wilder [employer] 02/24/2023 13:57:27 Imaging Results None recorded. Procedure Notes None recorded. Medical Equipment None Reported. Allergies No known drug allergies Medications Name Sig Start Date Stop Date Status Note LastModified by Organization Details LastModified Time cyclobenzap rine 10 mg tablet TAKE 1 TABLET 3 TIMES A DAY BY ORAL ROUTE NEEDED. active Not Available Not Available No t Available amoxicillin 500 mg capsule TAKE 1 CAPSULE BY MOUTH TWICE A DAY FOR 10 DAYS active Not Available Not Available No t Available sumatriptan 100 mg tablet TAKE 1 TABLET EVERY DAY BY ORAL ROUTE NEEDED FOR 9 DAYS. active Not Available Not Available No t Available prednisone 20 mg tablet PLEASE SEE ATTACHED FOR DETAILED DIRECTION S active Not Available Not Available No t Available tramadol 50 mg tablet TAKE 1 TABLET BY MOUTH EVERY 4 HOURS NEEDED FOR PAIN 02/24 completed Not Available Not Available Not Available Depo-Medrol 80 mg/mL suspension for injection Take 1 mL by injection route. 2023 active Not Available Not Available Not Avai lable citalopram 20 mg tablet TAKE 1 TABLET BY MOUTH EVERY DAY 01/21 completed Not Available Not Available Not Available rizatriptan 10 mg disintegrat ing tablet DISSOLVE 1 TABLET ON TONGUE AND SWALLOW EVERY DAY DIRECTED FOR 9 DAYS 01/21 completed did not help Not Available Not Available Not Available Banophen 25 mg capsule TAKE 1-2 CAPSULES BY MOUTH AT BEDTIME NEEDED active Not Available Not Available No t Available ergocalcife rol (vitamin D2) 1,250 mcg (50,000 unit) capsule TAKE 1 CAPSULE BY MOUTH ONE TIME PER WEEK active Not Available Not Available No t Available ondansetron 4 mg disintegrat ing tablet PLACE 1 TABLET 3 TIMES A DAY BY TRANSLING UAL ROUTE NEEDED 01/21 completed Not Available Not Available Not Available amoxicillin 875 mg-potassiu m clavulanate 125 mg tablet TAKE 1 TABLET BY MOUTH TWICE A DAY FOR 10 DAYS 01/21 completed Not Available Not Available Not Available Benadryl Allergy 25 mg tablet 1 to 2 tabs po at bedtime as needed 2023 active Not Available Not Available Not Avai lable Blisovi 24 Fe 1 mg-20 mcg (24)/75 mg (4) tablet TAKE 1 TABLET BY MOUTH EVERY DAY 02/24 completed Not Available Not Available Not Available Vitals Date Recorded Body height Body mass index (BMI) Body weight Body temperature Heart rate Oxygen saturation Oxygen saturation in Arterial blood by Pulse oximetry Systolic And Diastolic Provider Name and Address Organization Details Last Updated DateTime 4 167.64 cm 26.6 kg/m2 71585.7 4 g 97.3 [degF] 92 /min 97 % 97 % 112/74 mm[Hg] Kenisha Jalloh MA [facility] [employer] [facility] 4 10:03:24 Date Recorded Body height Body mass index (BMI) Body weight Body temperature Heart rate Oxygen saturation Oxygen saturation in Arterial blood by Pulse oximetry Systolic And Diastolic Provider Name and Address Organization Details Last Updated DateTime 4 167.64 cm 27 kg/m2 98977.9 3 g 97.4 [degF] 76 /min 98 % 98 % 106/74 mm[Hg] Kareen Patel RN [facility] [employer] [facility] 4 08:57:04 Date Recorded Body height Body mass index (BMI) Body weight Body temperature Heart rate Respiratory rate Oxygen saturation Oxygen saturation in Arterial blood by Pulse oximetry Systolic And Diastolic Provider Name and Address Organization Details Last Updated DateTime 4 167.64 cm 26.8 kg/m2 03725.3 3 g 97.6 [degF] 64 /min 16 /min 98 % 98 % 116/76 mm[Hg] Kareen Patel RN [facility] [employer] [facility] 4 11:29:15 Date Recorded Body weight Body mass index (BMI) Body height Body temperature Heart rate Oxygen saturation Oxygen saturation in Arterial blood by Pulse oximetry Systolic And Diastolic Provider Name and Address Organization Details Last Updated DateTime 3 56952.2 6 g 24 kg/m2 167.64 cm 98.2 [degF] 73 /min 98 % 98 % 102/80 mm[Hg] HARI Wilder [facility] [employer] [facility] 3 14:00:44 Social History Question Answer Notes LastModified by [employer] Details LastModified Time Tobacco Smoking Status Never Smoker HARI Wilder null [facility] [employer] [facility] 02/24/2023 13:57:14 What Is Your Level Of Caffeine Consumption? None Information not available 01/21/2024 What Is The Highest Grade Or Level Of School You Have Completed Or The Highest Degree You Have Received? [id number] Information not available 01/21/2024 What Is Your Relationship Status? Single [email or web address] Information not available 01/21/2024 Are You Currently In School? No [email or web address] Information not available 01/21/2024 Sex: Unknown Functional Status Question Answer Note LastModified by [employer] Details LastModified Time Do you use any illicit or recreational drugs? No [email or web address] Information not available 01/21/2024 What is your level of alcohol consumption? None [email or web address] Information not available 01/21/2024 Are you currently employed? No [email or web address] Information not available 01/21/2024 Mental Status None recorded. Family History Relationship Description Onset Age of this Age Resolved Age Notes LastModified by Organization Details LastModified Time Father No current problems or disability [email or web address] Not available 02/24 13:56:59 Mother No current problems or disability [email or web address] Not available 02/24 13:56:59 Medical History Condition Response BLINDNESS N RHEUMATIC FEVER N KIDNEY STONES N BLADDER PROBLEMS N MRSA N OTHER # 1 N POLIO N LUNG DISEASE/DISORDER N HISTORY OF DRUG ABUSE N COPD N RADIATION / CHEMOTHERAPY N Other # 2 N BLOOD DISEASES N SURGERY N EAR OR HEARING PROBLEMS N MUMPS N SHINGLES N BOWEL PROBLEMS N FEMALE PROBLEMS / INFECTIONS N DEPRESSION (INCLUDING POST ) Y FAILED BACK SYNDROME N STROKE/TIA N THYROID DISEASE N ULCERS N BENIGN PROSTATIC HYPERPLASIA N MEASLES N CERVICALGIA N HYPOTENSION N TB SKIN TEST N MYOCARDIAL INFARCTION N PARAPELGIA N OBESITY N GERD/NAUSEA N ANEURYSM N URINARY/BLADDER/KIDNEY PROBLEMS N CORONARY ARTERY DISEASE (CAD) N MENIERE'S DISEASE N Do you have Advance directive? N ADDICTION CONCERNS N ENDOMETRIOSIS N USE OF BLOOD THINNERS N SKIN PROBLEMS N EMPHYSEMA N GASTROINTESTINAL DISORDER N PERIPHERAL ARTERY DISEASE N MUSCLE,JOINT OR BONE PROBLEMS N GASTROINTESTINAL BLEEDING N BLOOD CLOTS N ASTHMA N Abdominal Pain N CATARACTS N ARTERIAL INSUFFICIENCY N ERECTILE DYSFUNCTION N GI PROBLEMS N CHF N Low Testosterone N NEUROPATHY N INFERTILITY N AIDS/HIV N FRACTURES N CHEMOTHERAPY / RADIATION N VISION/EYE PROBLEMS N LIVER DISEASE N HYPERTENSION N TOURETTE'S N ANXIETY DISORDER Y BLOOD TRANSFUSION N ANEMIA/BLOOD DISORDER N CHRONIC EAR INFECTIONS N BRONCHITIS N TUBERCULOSIS N GLAUCOMA N FOOT PROBLEM N DIVERTICULITIS N CHICKENPOX N SLEEP APNEA N BACK INJECTIONS N ALLERGIES/HAYFEVER N INFECTIOUS DISEASE N HEART ARRHYTHMIA N PROSTATE N ESRD N INSOMNIA N HIGH CHOLESTEROL / HYPERLIPIDEMIA N HYPERTHYROIDISM N EYE PROBLEMS N PVD N EATING DISORDER N EDEMA N CHRONIC PAIN SYNDROME N CAROTID BLOCKAGE N CONSTIPATION N BACK / NECK PROBLEMS N HAVE YOU BEEN HOSPITALIZED OR SEEN IN [facility] IN THE PAST YEAR ? N ATHEROSCLEROSIS N BREAST PROBLEMS N DIALYSIS N POLYCYSTIC OVARIES N ECZEMA N FIBROMYALGIA N OSTEOPOROSIS N ARTHRITIS N NO SIGNIFICANT PAST MEDICAL HISTORY N APPENDICITIS N DIABETES, TYPE N BAD TEETH N VON WILLIBRAND'S DISEASE N HEARTBURN / REFLUX N ADD/ADHD N AUTISM SPECTRUM DISORDER (ASD) N POST LAMINECTOMY SYNDROME N HEPATITIS / LIVER DISEASE N PULMONARY DISEASE N GOUT N SLEEP DISORDER N ALZHEIMER'S DISEASE N PAIN N HERPES N DEMENTIA N HEADACHES/MIGRAINES N SEIZURES/EPILEPSY N VASCULAR DISEASE N PACEMAKER N DIZZINESS N HEART DISEASE/HEART PROBLEMS N KIDNEY DISEASE N DEVELOPMENTAL OR BEHAVIORAL DISORDERS N MULTIPLE SCLEROSIS N SCARLET FEVER N MENTAL DISORDER/ILLNESS N NEUROPSYCHOLOGICAL N CARDIAC ARRHYTHMIA N CANCER: SPECIFY N PNEUMONIA N ATRIAL FIBRILLATION N Gall Stones N PULMONARY EMBOLISM N AUTOIMMUNE DISEASE N Gynecological History Statement/Question Response Abnormal Pap N Flow Moderate Date of LMP 02/23/2023 STIs/STDs N Duration of Flow (days) 4 Current Control Method None Age at Menarche 10 How many live births 2 Frequency of Cycle (Q days) 26 Sexually Active? Y Menses Monthly Y Obstetrics History GPAL:G 2 P 2 0 0 2 Type Value Full Term 2 Living 2 Total 2 Past Encounters Encounter ID Performer Location Encounter Start Date Encounter Closed Date Diagnosis/Indication Diagnosis SNOMED-CT Code Diagnosis ICD10 Code Diagnosis Note [id number] Contreras Jung MD [facility] [place] [address] [place] [address] [place] [address] 02/24/2023 13:49:50 02/24/2023 14:15:39 Thoracic back pain 789175140 M54.6 Analgesic rub and stretching and NSAIDs Low back pain 549218190 M54.50 May need PT pending xrays. Use ibuprofen as needed [id number] Contreras Jung MD [facility] [place] [address] [place] [address] [place] [address] 12/24/2023 09:55:13 12/24/2023 10:26:48 Headache 90131671 R51.9 Low back pain 701539087 M54.50 Depressive disorder 3548 9007 F32.A Anxiety 24222975 F41.9 [id number] Contreras Jung MD [facility] [place] [address] [place] [address] [place] [address] 01/21/2024 08:50:03 01/21/2024 09:22:12 Headache 16550110 R51.9 Anxiety 93753309 F41.9 Low back pain 445576734 M54.50 [id number] Contreras Jung MD [facility] [place] [address] [place] [address] [place] [address] 02/19/2024 11:22:25 02/19/2024 11:45:15 Insect bite - wound 822347118 T14.8XXA Anxiety 93064506 F41.9 Chronic low back pain 27 8495936 M54.50 Depressive disorder 3548 9007 F32.A Thoracic back pain 96925 8004 M54.6 Health Concerns Section Related Observation LastModified by Organization Detai ls LastModified Time None Recorded Concern Status LastModified by Organization Details LastModified Time None Recorded Advance Directives Directive None Recorded Payers Insurance Date Sequence Insurance Name Policy Number Policy [place] Covered Member ID [place] Member ID Guarantor Name 12/24/2023 3 [facility] (MEDICAID HMO) Josette Delgado [id number] Josette Delgado 12/24/2023 2 [place] Josette Delgado [id number] Josette Delgado 12/24/2023 1 [place] Del[place] [id number] Josette Delgado 04/03/2024 1 [facility] - DOS ON OR AFTER 21 (MEDICAID REPLACEMENT - HMO) Josette Delgado [id number] Josette Delgado OBGyn Episode No OBEpisode recorded.
--- OUTSIDE RECORDS SUMMARY | 2025-06-27 08:07 | XMS_ITS | Data Portability ---
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 patient/pa RTC in 1 year for next routine visit. I discussed with the parent the recommende d immunizati ons for the patient today; all questions were answered and the informatio nal handout was given. Also encouraged routine physical activity on a daily basis (at least 1 hour minimum per day). Proper dietary habits were discussed. Breast self exam discussed. [id number] [facility] [address] [place], [place] [address] [address] 09/12/2016 16:56:21 09/13/2016 12:28:35 Active or passive immunization 185939396 Z23 [id number] Nereida Scott [facility] [address] [place] [address],[address] [address] 10/14/2016 12:20:47 10/17/2016 15:42:44 Anxiety disorder 858546469 F41.9 Doing well in all areas, planning on college next year. Will continue sertraline , RTC with issues or problems. Active or passive immunization 697389610 Z23 I discussed with the parent the vaccines ordered below that the patient is to receive today; all questions were answered and the informatio nal handout(s) was/were given. [id number] Keisha [facility] [address] [place] [address],[address] [address] 02/06/2017 15:15:26 02/07/2017 13:38:36 Night sweats 46734651 R61 etiologies to consider: viral syndrome some more significna t infectious process some malignant process Will obtain some additional labs to furher evaluate CBC, cmp, sed rate, crp Backache 418201950 M54.9 as above [id number] MORENITA BROCK [facility] [address] [place] [address],[address] [address] 02/27/2017 15:26:56 02/28/2017 12:01:57 Acute frontal sinusitis 39146040 J01.10 Sinusitis- Symptoms greater than 2 weeks with fever. Take oral antibiotic s as written. Rest. Drink plenty of fluids. F/U if no improvemen t in 48-72 hours. May have Tylenol or Ibuprofen for fever. May use nasal saline to relieve congestion . May have honey based cough syrup as needed for cough. [id number] Nereida Scott [facility] [address] [place] [address],[address] [address] 08/08/2017 15:44:49 08/09/2017 10:36:32 Gastroenteritis 13223194 K52.9 Gastroente ritis- Hydration status okay, continue to encourage fluids, and bland diet. RTC with dehydratio n or other concerns. [id number] Nereida Scott [facility] [address] [place], [place] [address] [address] 08/12/2017 15:47:03 08/13/2017 12:41:34 Nausea 062633019 R11.0 Likely exacerbate d by stressors, exam is reassuring . Continue bland diet. Call or RTC if not improved or worsening later in week. Off sertraline this summer but feels she is doing okay off of it. [id number] Nereida Scott [facility] [address] [place] [address] 11/06/2017 14:17:58 11/07/2017 11:09:35 Nausea 839404421 R11.0 Exam is reassuring , no constipati on, diarrhea or vomiting. Feels different generic for Tri Sprintec is a cause. Recommend probiotic. Denies possibilit y of . Dysmenorrhea 752384173 N 94.6 Prescribe Destini VELA. [id number] Keisha [facility]awa [facility] [address] [place] [address] 03/09/2018 11:12:43 03/10/2018 10:48:52 Allergic rhinitis 85496054 J30.9 Allergic Rhinitis Plan: loratidine daily until all symptoms have resolved - may continue daily until end of allergy season, steroid nasal spray (if warranted) . Avoidance of activities that worsen the symptoms. RTC if no improvemen t with this plan in a week. Anxiety disorder 2930036 06 F41.9 Followup on anxiety and depression - there has been significan t improvemen t in the past month since the medication was started. Per history of patient and parent, there has been a marked decrease in the prior symptoms. No side effects Plan: continue same dosage of medication (patient totally concurs) RTC 2 months Call sooner with any problems [id number] Keisha [facility] [address] [place] [address] 08/31/2018 12:12:55 09/02/2018 10:12:10 Abdominal pain 23115776 R10.9 Abdominal pain - of recent onset. Possible etiologies : UTI functional abdominal pain side effects of prior GI illness inflammato ry process infectious process STI Plan: Dip UA Given order for CBC, CMP, Amylase, Lipase daily yogurt with probiotic daily Anticipato ry guidance to patient, discussing the above possibilit ies of etiology Will follow up with lab reports Further plans depending upon obtained labs Active or passive immunization 406017288 Z23 Immunizati on counseling completed. [id number] Keisha Randhawa MD [facility] [address] [place] [address] 09/29/2018 15:45:15 09/30/2018 10:46:27 Chlamydial infection 736268491 A74.9 Chlamydial Infection follow-up -- Completed treatment and denies continued symptoms. Urine recheck sent. Follow-up visit 08077916 9 Z09 64830503 Z33.1 -- Given referral for an OBGYN, given # to Dr. Nevarez. Discussed starting on a vitamin, healthy eating, avoiding alcohol, drugs, cigarette smoking. Limit caffeine intake. Given order for serum HCG, will call with results. [id number] Keisha Randhawa MD [facility] [address] [place] [address] 2018 11:04:43 12/17/2018 10:37:07 Adult health examination 377883638 Z00.00 Well adolescent /adult - appropriat e for growth and developmen t. Anticipato ry guidance was given to patient/pa RTC in 1 year for next routine visit. I discussed with the parent anticipato ry guidance for their teen; all questions were answered and the informatio nal handout was given. Also encouraged routine physical activity on a daily basis (at least 1 hour minimum per day). Proper dietary habits were discussed. [id number] Eliana Syed M.D. [facility] [address] [place] [address] 01/21/2019 10:52:38 01/22/2019 12:24:42 Acute sinusitis 48420721 J01.90 Recommende alex damon for doing sinus rinses and two weeks of antibiotic . Patient instructed to call for fever, periorbita l swelling or erythema. [id number] Keisha Randhawa MD [facility] [address] [place] [address] 3 11/13/2022 17:52:16 11/19/2022 12:04:51 Active or passive immunization 447421455 Z23 Health Concerns Section Related Observation LastModified by Organization Detai ls LastModified Time None Recorded Concern Status LastModified by Organization Details LastModified Time None Recorded Advance Directives Directive None Recorded Payers Insurance Date Sequence Insurance Name Policy Number Policy [place] Covered Member ID B[place] Member ID Guarantor Name 07/10/2019 1 [facility] Josette Porter [id number] Josette Porter 07/10/2019 1 [facility] (MEDICAID HMO) [id number] Josette Porter [id number] Josette Porter 07/16/2014 1 [employer] - DOS PRIOR TO 21 - [facility] BENEFITS PLAN [id number] Negrito Sanlorenzo [id number] Josette Porter 05/02/2016 1 *SELF PAY* Jorge Buenrostro 07/10/2019 1 [place] [facility] Josette Porter [id number] Josettejaylon Buenrostro 07/16/2014 1 CMR - IBEW LOCAL 1 (PPO) [id number] Negrito Bievenue [id number] Josette Porter 08/29/2015 1 [employer] - [employer] [place] [id number] Negrito Bien [id number] Josette Porter 07/16/2014 1 [employer] NETWORK - [employer] [place] [id number] Negrito [facility] [id number] Josette Porter 07/10/2019 1 [facility] (MEDICAID HMO) Josette Ball [id number] Josettejaylon Buenrostro 07/10/2019 1 [place] [facility] Josettejaylon Buenrostro [id number] Josettejaylon Buenrostro 07/10/2019 1 [place] Josette Ball [id number] Josette Ball 07/10/2019 1 [facility] (MEDICAID HMO) Josette Ball [id number] Josette Porter 11/19/2022 1 [facility] - DOS ON OR AFTER 21 (MEDICAID REPLACEMENT - HMO) Josette Porter [id number] Josette Buenrostro 08/31/2018 [facility] [id number] Negrito Pope [id number] Josette Buenrostro 12/05/2015 1 [facility] - OPEN ACCESS (POS) [id number] Negrito Pope [id number] Josette Buenrostro 11/06/2017 1 [facility] (PPO) [id number] Gilma Whitten [id number] Josette Buenrostro 07/20/2021 1 [facility] PRIOR TO 05/31/2021 (MEDICAID REPLACEMENT - HMO) Josette Buenrostro [id number] Josette Buenrostro OBGyn Episode No OBEpisode recorded.
--- OUTSIDE RECORDS SUMMARY | 2025-06-27 08:07 | XMS_ITS | Data Portability ---
Author Organization [facility] Address [address] [place] [address] Assessment Encounter Date Assessment Date Assessment LastModified by Organization Details LastModified Time 04/15/2017 04/15/2017 -Counseled on proper use of OCP - Counseled on safe sex, condom use and STD prevention - Will follow up in one year, sooner if needed - Will call the office or Dr. Randhawa's office for refill on OCP when needed. [email or web address] Not available 04/21/2017 14:13:01 Plan of Treatment Reminders Order Date Submit Date Provider Last Modified By Organization Details Last Modified Time Details Appointments None record ed. Lab None record ed. Referral None record ed. Procedures None record ed. Surgeries None record ed. Imaging None record ed. Medication Orders None record ed. Patient TargetsNo targets recorded. Patient InstructionsNo instructions recorded. Reason for Referral None Reported. Problems No Known Problems Procedures Surgical History Date Name Laterality Status Provider Name and Address Organization Details Recorded Time Tonsillectomy completed Rosmery Miller MA [facility] 04/15/2017 11:13:17 Imaging Results None recorded. Procedure Notes None recorded. Medical Equipment None Reported. Allergies No known drug allergies Medications Name Sig Start Date Stop Date Status Note LastModified by Organization Details LastModified Time azithromycin 250 mg tablet active Not Available Not Availabl e Not Available fluticasone propionate 50 mcg/actuation nasal spray,suspensi on 2016 completed Not Available Not Available Not Available sertraline 50 mg tablet active Not Available Not Available No t Available Tri-Sprintec (28) 0.18 mg(7)/0.215 mg(7)/0.25 mg(7)-0.035 mg tablet active Not Available Not Available Not Available Vitals Date Recorded Body weight Body height Body mass index (BMI) Systolic And Diastolic Provider Name and Address Organization Details Last Updated DateTime 04/15/2017 61161.2 g 167.64 cm 21.1 kg/m2 102/64 mm[Hg] Rosmery Miller MA [place] [facility] 04/15/2017 11:10:39 Social History None recorded. Functional Status None recorded. Mental Status None recorded. Family History Relationship Description Onset Age of this Age Resolved Age Notes LastModified by Organization Details LastModified Time Father Diabetes mellitus blair Not available 11:12:54 Notes:cervical cancer mother and sister Medical History Condition Response Coronary Artery Disease N Other N High Blood Pressure N Atrial Fibrillation N Kidney or Bladder Problems N Thyroid Problems N GI Problems N Depression N COPD N Blood Clots N Skin Problems N Anemia N Heart Attack ([place]) N Anxiety Disorder N Diabetes N Muscle, Joint, or Bone Problems N Seizures/Epilepsy N Acid Reflux (GERD) N Cancer N Stroke N Asthma N Allergies N High Cholesterol N Hepatitis N Liver Disease N Headaches N Osteoporosis N Heart Failure N Gynecological History Statement/Question Response Flow Light Date of LMP 04/03/2017 Menses Monthly Y Duration of Flow (days) 4 Age at Menarche 10 LMP Definite Obstetrics History GPAL:G 0 P 0 0 0 0 Past Encounters Encounter ID Performer Location Encounter Start Date Encounter Closed Date Diagnosis/Indication Diagnosis SNOMED-CT Code Diagnosis ICD10 Code Diagnosis Note [id number] KATHIE [facility] ([facility] 122) 2 [facility] [address] [place] [address] 04/15/2017 10:50:45 04/21/2017 14:35:49 Contraception care management 739706760 Z30.9 Health Concerns Section Related Observation LastModified by Organization Detai ls LastModified Time None Recorded Concern Status LastModified by Organization Details LastModified Time None Recorded Advance Directives Directive None Recorded Payers Insurance Date Sequence Insurance Name Policy Number Policy Benton Covered Member ID Benton Member ID Guarantor Name 11/07/2018 1 [facility] (MEDICAID HMO) Josette Buenrostro [id number] Josette Buenrostro 10/13/2018 1 [place] [facility] Josette Buenrostro [id number] Josette Buenrostro 10/13/2018 1 [place]PPO) [id number] Gilma Whitten [id number] Josette Ball OBGyn Episode No OBEpisode recorded.
--- OUTSIDE RECORDS SUMMARY | 2025-06-27 08:08 | XMS_ITS | Referral Summary ---
Author Organization [facility] Address [address] [place] [address] Care Team Providers Care Rn Advanced Name Role Phone No, Physician Unavailable Contreras Jung MD Primary Care Provider [phone]- [phone] Allergies No known active allergies Medications SUMAtriptan (IMITREX) 100 mg tablet TAKE 1 TABLET EVERY DAY BY ORAL ROUTE NEEDED FOR 9 DAYS. 4 Active rizatriptan BURR MACHINE OPERATOR (MAXALT-BURR MACHINE OPERATOR) 10 mg disintegrating tablet DISSOLVE 1 TABLET [...] on file Legal Sex Female 9:53 AM ESTHETICIAN Gender Identity Not on file Sexual Orientation [...] 6:01 PM CDT Height 167.6 cm (5' 6) 09/22/2024 6:01 PM CDT Body Mass Index 25.99 09/22/2024 6:01 PM CDT Plan of Treatment Not on file Procedures Procedure Name Priority Date/Time Associated Diagnosis Comments PAP AND HPV, REFLEX TO HPV GENOTYPES Routine 03/08/2024 2:30 PM CDT Well woman exam HEPATITIS C ANTIBODY Routine 01/31/2021 2:47 PM ESTHETICIAN Encounter for supervision of other normal in first trimester 12 weeks gestation of from Last 3 Months or Most Recently Relevant to Health Maintenance Results * Pap and HPV, reflex to HPV Genotypes (03/08/2024 2:30 PM CDT) CLINICAL INFORMATION: [facility] Comment:Routine exam LMP [facility] Comment:[id number] Previous Pap [facility] Comment:NONE GIVEN Prev. Bx [facility] Comment:NONE GIVEN SOURCE: [facility] Comment:Cervix, Endocervix Pap, specimen adequacy [facility] Comment: Satisfactory for evaluation. Endocervical/transformation zone component present. HPV interp [facility] Comment: Cytology Results: Negative for intraepithelial lesion or malignancy. COMMENTS [facility] Comment: This Pap test has been evaluated with computer assisted technology. Blindstitch Lapel Padder [facility] Comment: MMD, CT(ASCP) CT Screening Location: [address], [place] [address] [facility] Comment: EXPLANATORY NOTE: The Pap is a [...] High Risk E6/E7 Not Detected NOT DETECTED [facility] [place] [place] Comment: Not Detected High Risk HPV types (16,18,31,33,35,39,45,51,52, 56,58,59,66,68) were not detected. Other HPV types which cause anogenital lesions may be present. The significance of the other types of HPV in malignant processes has not been established. Methodology: Real Time PCR Thin prep 03/08/2024 2:30 PM CDT 03/09/2024 1:30 AM CDT Carmenza Grady [employer]AC[employer]ING MA[employer] LAB CYTOLOGY ORDERABLES Final Re sult [place] [place] [address] Intent[facility]Wendy [facility]lyThe [facility] [address] [place] [address] * Hepatitis C antibody (01/31/2021 2:47 PM ESTHETICIAN) Hep C Ab Nonreactive Nonreactive CARMEN BRADY [...] last revised on 2020. Testing performed by: [facility], [address] [place] [address]., [id number] Blood specimen (specimen) 01/31/2021 2:47 PM ESTHETICIAN 02/01/2021 9:25 AM ESTHETICIAN hCanda Ivory CAPACITY PLANNING MANAGER LAB MICROBIOLOGY - GENERA L ORDERABLES Final Result CARMEN BRADY ([place]) 1 [facility] Department [place] [address] from Last 3 Months or Most Recently Relevant to Health Maintenance Insurance [facility] MEDICAID IDPA [facility] BENEFITS [facility] Advance Directives For more information, please contact: [phone] * Full Code (Latest Code Status on [...] in case of cardiopulmonary arrest Care Teams Rn Advanced Relationship Specialty Start Date End Date Contreras Jung MD [address] [place] [address] [place] [address] PCP - General Family Medicine 02/25/24 No, Physician 05/15/21
--- OUTSIDE RECORDS SUMMARY | 2025-06-27 08:08 | XMS_ITS | Clinical Summary ---
Author Organization [facility] Address [address] [place] [address] Care Team Providers Care Marine Engineering Teacher Name Role Phone No, Physician Unavailable Contreras Jung MD Primary Care Provider [phone]- [phone] Allergies No known active allergies Medications SUMAtriptan (IMITREX) 100 mg tablet TAKE 1 TABLET EVERY DAY BY ORAL ROUTE NEEDED FOR 9 DAYS. 4 Active rizatriptan COMPUTING SERVICES DIRECTOR (MAXALT-COMPUTING SERVICES DIRECTOR) 10 mg disintegrating tablet DISSOLVE 1 TABLET [...] on file Legal Sex Female 9:53 AM HEMP FIBER TAKER OFF Gender Identity Not on file Sexual Orientation [...] MONTRELL DELGADO Joseph Mark, MD Complications:None Delivery Location:[facility] ([facility]) 2020 Term [...] Health Maintenance Due Date Last Done Comments Cervical Cancer Screening 03/08/20252023, 10/18/2022, 12/12/2020 Depression Screening 03/08/2025 03/08/2024, 10/18/2022, 10/18/2022, Additional history exists Regular Well Visit/Exam 18-64 03/08/2025 03/08/2024, 10/18/2022 Influenza Vaccine (#1) 2025 8, 09/12/2016, 09/26/2015, Additional history exists DTaP/Tdap/Td Vaccine (9 - Td or Tdap) [...] HEPATITIS C ANTIBODY Routine 01/31/2021 2:47 PM HEMP FIBER TAKER OFF Encounter for supervision of other normal in first trimester 12 weeks gestation of from Last 3 Months or Most Recently Relevant to Health Maintenance Results * Pap and HPV, reflex to HPV Genotypes (03/08/2024 2:30 PM CDT) CLINICAL INFORMATION: [facility] Comment:Routine exam LMP [facility] Comment:[id number] Previous Pap [facility] Comment:NONE GIVEN Prev. Bx [facility] Comment:NONE GIVEN SOURCE: [facility] Comment:Cervix, Endocervix Pap, specimen adequacy [facility] Comment: Satisfactory for evaluation. Endocervical/transformation zone component present. HPV interp [facility] Comment: Cytology Results: Negative for intraepithelial lesion or malignancy. COMMENTS [facility] Comment: This Pap test has been evaluated with computer assisted technology. Functional Manager [facility] Comment: MMD, CT(ASCP) CT Screening Location: [place] [address] Comment [facility] Comment: EXPLANATORY NOTE: The Pap is [...] High Risk E6/E7 Not Detected NOT DETECTED [facility] /Wendy LACEY Comment: Not Detected High Risk HPV types (16,18,31,33,35,39,45,51,52, 56,58,59,66,68) were not detected. Other HPV types which cause anogenital lesions may be present. The significance of the other types of HPV in malignant processes has not been established. Methodology: Real Time PCR Thin prep 03/08/2024 2:30 PM CDT 03/09/2024 1:30 AM CDT Carmenza Grady DEPUTY GRAND JURY LAB CYTOLOGY ORDERABLES Final Re sult [facility] [address] [place] [address] [facility] [address] [place] [address] * Hepatitis C antibody (01/31/2021 2:47 PM HEMP FIBER TAKER OFF) Hep C Ab Nonreactive Nonreactive CARMEN BRADY [...] revised on 2020. Testing performed by: [facility], [address] [place] [address]., [id number] Blood specimen (specimen) 01/31/2021 2:47 PM HEMP FIBER TAKER OFF 02/01/2021 9:25 AM HEMP FIBER TAKER OFF Chanda Ivory DEPUTY GRAND JURY LAB MICROBIOLOGY - GENERA L ORDERABLES Final Result CARMEN BRADY (BLANCA) 1 [facility] Department [place] [address] from Last 3 Months or Most Recently Relevant to Health Maintenance Insurance [facility] [place] [address] [place] [address] [facility] BENEFITS [facility] Advance Directives For more information, please contact: [phone] * Full Code (Latest Code Status on [...] in case of cardiopulmonary arrest Care Teams Marine Engineering Teacher Relationship Specialty Start Date End Date Contreras Jung MD [facility] [place] [address] PCP - General Family Medicine 02/25/24 No, Physician 05/15/21
--- NOTE | 2025-06-27 08:22 | ED.URI ---
HPI - URI/Sore Throat General Chief Complaint: Upper Respiratory Infection Stated Complaint: throat/nose/congestion/headache History of Present Illness HPI Narrative: Patient is a 24-year-old female, without significant past medical history, presents to urgent care with 24 hour history of URI symptoms, including nasal congestion, clear rhinorrhea, sore scratchy throat and dry cough. She has also felt nauseated and vomited once this morning. She has no abdominal pain. She took a dose of allergy medication last night for symptom relief without improvement. She has not had a fever. She has no known sick contacts COVID-19 exposures. She has not traveled. She denies any additional associated symptoms or modifying factors. She is not . Related Data Home Medications ?Medication ?Instructions ?Recorded ?Confirmed ?Last Taken ?Type NO HOME MEDS 11/09/24 02/09/25 Unknown History Allergies Allergy/AdvReac Type Severity Reaction Status Date / Time No Known Allergies Allergy Verified 02/09/25 11:28 Review of Systems Constitutional: Constitutional: Reports as per HPI ENT: Reports as per HPI Respiratory: Respiratory: Reports as per HPI [facility] Past Medical History Medical History Kidney pain (~02/07/25) Headache Strep pharyngitis Surgical History Surgical History Hx of tonsillectomy Family History Family History Father Alcoholism Hypertension Diabetes mellitus Grandparent Hypertension Diabetes mellitus Depression Social History Social History Smoking status: Never smoker Exam Const: General: healthy appearing and no acute distress Nutritional Appearance: well nourished Orientation/consciousness: patient oriented x3 Limitations: no limitations HENMT: Head: normal to inspection Ears: EAC's normal and TM abnormal ( Bilateral serous effusion noted, no erythema, no purulence) Face and sinus: normal facial exam and sinuses nontender Mouth: Yes Normal oral and palatal mucosa present and Yes lip normal Teeth and gingiva: dentition normal Throat: posterior oropharynx normal and uvula midline Eyes: Conjunctivae: conjunctivae normal Pupils: Equal, round and reactive pupils present EOM: EOMs intact bilaterally Direct Ophthalmoscopy: no photophobia Neck: Neck: normal visual inspection, no lymphadenopathy and no meningeal signs Chest: Chest palpation & inspection: normal inspection of the chest Resp: Effort & Inspection: normal respiratory effort Auscultation: clear to auscultation bilaterally Cardio: Rate: regular rate Rhythm: regular rhythm Skin: General skin exam: normal color Rashes: no rashes Wounds: no wounds Neuro: General: patient oriented x3, moves all extremities, no meningeal signs, no focal motor deficits and CN's II-XI intact bilaterally Cranial nerves: Yes Nystagmus not present Speech: normal speech Gait exam (Neuro): Normal gait present Extrem: General: normal to inspection, no clubbing, cyanosis or edema and no pedal edema Psych: Mental Status: mental status grossly normal Affect: normal affect Course Course Emergency Course: patient has no evidence of abnormal findings on examination. Her symptoms are consistent with a viral URI. Symptom onset less than 24 hours prior to arrival. She has taken a dose of Zyrtec only. She is encouraged to continue supportive care at home, pushing fluids, she may continue antihistamines and Flonase for serous effusion to TMs bilaterally. Will prescribe promethazine DM for added symptom relief. She is given the typical viral prodrome symptoms, duration and what to expect at home and when to return to her primary care provider or urgent care should symptoms change, worsen or with any further urgent needs. Patient verbalized understanding she is agreeable discharge plan of care Level of Care: Express Care Visit (98595) Vital Signs Vital signs: Vital Signs Temperature 36.6 C 06/27/25 08:06 Pulse Rate 81 06/27/25 08:06 Respiratory Rate 20 06/27/25 08:06 Blood Pressure 104/69 06/27/25 08:06 Pulse Oximetry 100 06/27/25 08:06 Oxygen Delivery Room Air 06/27/25 08:06 Temperature 36.6 C 06/27/25 08:06 Pulse Rate 81 06/27/25 08:06 Respiratory Rate 20 06/27/25 08:06 Blood Pressure 104/69 06/27/25 08:06 Pulse Oximetry 100 06/27/25 08:06 Oxygen Delivery Room Air 06/27/25 08:06 MDM - URI/Sore Throat MDM Narrative Medical decision making narrative: promethazine DM, Zyrtec [id number], Tylenol ibuprofen as directed for fever or body aches, PCP follow-up in 5-7 days if symptoms are not improving. Differential Diagnosis Differential diagnosis: Likely upper respiratory infection, otitis media, sinusitis, viral infection, influenza, pharyngitis and other ( Gastroenteritis, gastritis) Discharge Plan Discharge Clinical Impression: Upper respiratory infection Qualifiers: URI type: unspecified viral URI Qualified Code(s): J06.9 - Acute upper respiratory infection, unspecified Patient Disposition: Home Condition: Stable Instructions: Antibiotic Form, Urinary Tract Infection in Women (ED) Additional Instructions: PUSH FLUIDS, REST, YOU MAY TAKE TYLENOL AND/OR IBUPROFEN DIRECTED [id number] FOR FEVER REDUCTION OR DISCOMFORT. ZYRTEC MAY BE CONTINUED DIRECTED [id number] WELL FOR ADDED SYMPTOM RELIEF. FLONASE MAY IMPROVE CONGESTION WELL THE FLUID BEHIND YOUR EARDRUMS. PROMETHAZINE DM FOR COUGH SUPPRESSION. TAKE PRESCRIBED. FOLLOW-UP WITH YOUR PRIMARY DOCTOR IN 5-7 DAYS IF YOUR SYMPTOMS ARE NOT RESOLVING. Patient Language: Greek Prescriptions: New promethazine-DM 6.25-15 mg/5 mL syrup 5 ml PO Q4-6H PRN (Reason: cough) Qty: 118 0RF No Action NO HOME MEDS Follow-up/Referrals: Nereida Smith MD [Primary Care Provider] - Stand Alone Forms: Work/School Release IP Time of Disposition: 08:30
== END 2025-06-27 08:39 | disposition home or self-care (01) ==
PROVIDERS: Emergency Provider Nurse Practitioner Family; PCP Family Medicine
DX: J06.9 Acute upper respiratory infection, unspecified (principal)
CPT/HCPCS: 99213; G0463

== ENCOUNTER 2025-08-15 10:49 | Outpatient (CLI) | payer OTHER, SELFPAY ==
--- NOTE | ~2025-08-15 | US_ITS ---
EXAMINATION: US right upper quadrant DATE: 08/15/2025 11:44 INDICATION: Epigastric pain TECHNIQUE: Multiple grayscale and Doppler ultrasound images of the abdomen were obtained. COMPARISON: None FINDINGS: The pancreatic head and body are normal in appearance. The pancreatic tail is not visualized. Visualized proximal to mid inferior vena cava is normal. Liver has normal echogenicity and contour, with a smooth surface. No liver lesion identified. No intrahepatic biliary duct dilation suspected. Portal venous flow was seen in the hepatopetal, normal direction and has normal Doppler waveform. The gallbladder is normal in appearance. There is no cholelithiasis. The common bile duct measures 2 mm, which is normal. Sonographic Sandoval sign was reported as negative by the extruder. IMPRESSION: 1. Normal right upper quadrant ultrasound. Reviewed, dictated and finalized at location A.
[2025-08-15 12:13] LABS: Hematocrit 38.1 % (37.0-47.0); Hemoglobin 12.2 g/dL (12.0-15.0); Immature Granulocyte Percent A 0.1 % (0-0.5); Lymphocytes Absolute Auto 2.16 K/mm3 (0.9-3.2); Mean Corpuscular HGB Conc 32.0 g/dl (32-36); Mean Corpuscular Hemoglobin 30.7 pg (26-34); Mean Corpuscular Volume 95.7 fl (80-100); Nucleated Red Blood Cells Absolute Auto 0.000 K/mm3 (0.0-0.012); Nucleated Red Blood Cells Perc 0.0 % (0.0-0.2); Platelet Count Result 289 k/mm3 (150-375); Red Blood Count 3.98 M/mm3 (4.2-5.4); White Blood Count 7.0 K/mm3 (4.5-10.0)
--- OUTSIDE RECORDS SUMMARY | 2025-08-15 12:31 | XMS_ITS | Clinical Summary ---
Author Organization [facility] Address [address] [place] [address] Care Team Providers Care Bookmobile Librarian Name Role Phone No, Physician Unavailable Contreras Jung MD Primary Care Provider +1- [phone] Allergies No known active allergies Medications SUMAtriptan (IMITREX) 100 mg tablet TAKE 1 TABLET EVERY DAY BY ORAL ROUTE NEEDED FOR 9 DAYS. 4 Active rizatriptan COMMUNITY NURSE (MAXALT-COMMUNITY NURSE) 10 mg disintegrating tablet DISSOLVE 1 TABLET ON TONGUE AND SWALLOW EVERY DAY DIRECTED FOR 9 DAYS 4 Active ergocalciferol (Vitamin D2) 50,000 unit capsuleIndications: Vitamin D Deficiency Take 1 capsule (50,000 Units total) by mouth once a week 12 capsule 4 Active montelukast (SINGULAIR) 10 mg tablet Take [...] on file Legal Sex Female 9:53 AM DISTRICT MANAGER POSTAL SERVICE Gender Identity Not on file Sexual Orientation [...] MONTRELL DELGADO Joseph Mark, MD Complications:None Delivery [facility] ([facility]) 2020 Term 39w [...] HEPATITIS C ANTIBODY Routine 01/31/2021 2:47 PM DISTRICT MANAGER POSTAL SERVICE Encounter for supervision of other normal in first trimester 12 weeks gestation of from Last 3 Months or Most Recently Relevant to Health Maintenance Results * Pap and HPV, reflex to HPV Genotypes (03/08/2024 2:30 PM CDT) CLINICAL INFORMATION: [facility] Comment:Routine exam LMP [facility] Comment:[id number] Previous Pap [facility] Comment:NONE GIVEN Prev. Bx [facility] Comment:NONE GIVEN SOURCE: [facility] Comment:Cervix, Endocervix Pap, specimen adequacy [facility] Comment: Satisfactory for evaluation. Endocervical/transformation zone component present. HPV interp [facility] Comment: Cytology Results: Negative for intraepithelial lesion or malignancy. COMMENTS [facility] Comment: This Pap test has been evaluated with computer assisted technology. Hr Analyst Que [facility] Comment: MMD, CT(ASCP) CT Screening Location: [place] [address] Comment [facility] Comment: EXPLANATORY NOTE: The Pap [...] High Risk E6/E7 Not Detected NOT DETECTED Kulwinder Zuñiga /Wendy LACEY Comment: Not Detected High Risk HPV types (16,18,31,33,35,39,45,51,52, 56,58,59,66,68) were not detected. Other HPV types which cause anogenital lesions may be present. The significance of the other types of HPV in malignant processes has not been established. Methodology: Real Time PCR Thin prep 03/08/2024 2:30 PM CDT 03/09/2024 1:30 AM CDT Carmenza Grady NP LAB CYTOLOGY ORDERABLES Final Re sult [address] [place] [address] Kulwinder Zuñiga/[place] [address] [facility] [place] [address] * Hepatitis C antibody (01/31/2021 2:47 PM DISTRICT MANAGER POSTAL SERVICE) Hep C Ab Nonreactive Nonreactive CARMEN BRADY [...] last revised on 2020. Testing performed by: [facility], [address] [place] [address]., [id number] Blood specimen (specimen) 01/31/2021 2:47 PM DISTRICT MANAGER POSTAL SERVICE 02/01/2021 9:25 AM DISTRICT MANAGER POSTAL SERVICE Chanda Ivory LINEN ROOM WORKER LAB MICROBIOLOGY - GENERA L ORDERABLES Final Result CARMEN JOSE ANTONIO (BLANCA) 1 [facility] Department of Laboratories [place], [place] [id number] from Last 3 Months or Most Recently Relevant to Health Maintenance Insurance [facility] MEDICAID IDPA [facility] BENEFITS [facility] Advance Directives For more information, please contact: [phone] * Full Code (Latest Code Status on [...] in case of cardiopulmonary arrest Care Teams Bookmobile Librarian Relationship Specialty Start Date End Date Contreras Jung MD [address] [place] [address] [place] [address] PCP - General Family Medicine 02/25/24 No, Physician 05/15/21
--- OUTSIDE RECORDS SUMMARY | 2025-08-15 12:31 | XMS_ITS | Clinical Summary ---
Author Organization [facility] Address [address] [place] [address] Phone Care Team Providers Care Features Reporter Name Role Phone Keisha Randhawa MD Primary [...] Comments Hepatitis C Virus (HCV) Screening 1998 Influenza Immunization (#1) 08/01/202510/31, 08/31/2018, 09/12/2016, Additional history exists SARS-COV-2 Immunization ( - 2023-25 season) 2025 Respiratory Syncytial Virus (RSV) Immunization (Adult) (1 [...] Insurance MEDICAID [employer] Care Teams Features Reporter Relationship Specialty Start Date End Date Keisha Randhawa MD [address] [facility] [address] GARCIA [address] [place] [address] PCP - General Pediatrics 11/10/18
[2025-08-15 12:33] LABS: Alanine Aminotransferase 13 U/L (6-35); Albumin Level 4.2 g/dL (3.5-5.1); Alkaline Phosphatase 60 U/L (38-126); Anion Gap 7 mmol/L (4-12); Aspartate Amino Transferase 20 U/L (14-36); Bilirubin,Total 1.0 mg/dL (0.2-1.3); Blood Urea Nitrogen 15 mg/dL (7-17); Calcium 9.1 mg/dL (8.4-10.2); Carbon Dioxide 26 mmol/L (22-30); Chloride 103 mmol/L (98-107); Estimated Glomerular Filt Rate > 60; Glucose 86 mg/dL (65-110); Potassium 4.3 mmol/L (3.4-5.0); Sodium 136 mmol/L (137-145); Total Protein 6.9 g/dL (6.3-8.2)
== END 2025-08-15 10:50 | disposition home or self-care (01) ==
LOC: ANHIMG 10:50
PROVIDERS: PCP Family Medicine; Visit Provider Surgery
DX: R10.13 Epigastric pain (principal)
CPT/HCPCS: 36415; 76705; 80053; 85025

== ENCOUNTER 2025-08-16 11:31 | Outpatient (CLI) | payer OTHER, SELFPAY ==
--- NOTE | ~2025-08-16 | NM_ITS ---
EXAMINATION: NM_HEPATWP_NM DATE: 08/16/2025 13:36 INDICATION: Epigastric abdominal pain. COMPARISON: Ultrasound 08/15/2025 TECHNIQUE: 5.0 mCi Tc-99m mebrofenin (Choletec) was administered intravenously. Scintigraphic images of the abdomen were obtained for one hour. Then, 1.36 mcg sincalide (Kinevac) IV was administered, and imaging was continued for 30 minutes. FINDINGS: There is normal clearance of radiotracer from the blood pool. There is homogeneous tracer uptake by the liver. Activity progresses to the bowel and gallbladder. Gallbladder ejection fraction (GBEF) was 52%. Note that most patients with gallbladder dysfunction have GBEF < 35%, which overlaps with the broad normal range of 10-90%. IMPRESSION: 1. Normal hepatobiliary scintigraphy. Reviewed, dictated and finalized at location E.
--- OUTSIDE RECORDS SUMMARY | 2025-08-16 13:33 | XMS_ITS | Clinical Summary ---
Author Organization [facility] Address 1 [place] [address] Care Team Providers Care Master Coastwise Yacht Name Role Phone No, Physician Unavailable Contreras Jung MD Primary Care Provider +1- [phone] Allergies No known active allergies Medications SUMAtriptan (IMITREX) 100 mg tablet TAKE 1 TABLET EVERY DAY BY ORAL ROUTE NEEDED FOR 9 DAYS. 4 Active rizatriptan BLOW PIT HELPER (MAXALT-BLOW PIT HELPER) 10 mg disintegrating tablet DISSOLVE 1 TABLET [...] on file Legal Sex Female 9:53 AM DOCTOR OF NURSE ANESTHESIA Gender Identity Not on file Sexual Orientation [...] HEPATITIS C ANTIBODY Routine 01/31/2021 2:47 PM DOCTOR OF NURSE ANESTHESIA Encounter for supervision of other normal in first trimester 12 weeks gestation of from Last 3 Months or Most Recently Relevant to Health Maintenance Results * Pap and HPV, reflex to HPV Genotypes (03/08/2024 2:30 PM CDT) CLINICAL INFORMATION: [facility] Comment:Routine exam LMP [facility] Comment:[id number] Previous Pap [facility] Comment:NONE GIVEN Prev. Bx [facility] Comment:NONE GIVEN SOURCE: [facility] Comment:Cervix, Endocervix Pap, specimen adequacy [facility] Comment: Satisfactory for evaluation. Endocervical/transformation zone component present. HPV interp [facility] Comment: Cytology Results: Negative for intraepithelial lesion or malignancy. COMMENTS [facility] Comment: This Pap test has been evaluated with computer assisted technology. Linux Administrator Que [facility] Comment: MMD, CT(ASCP) CT Screening Location: [place] [address] Comment [facility] Comment: EXPLANATORY NOTE: The Pap is [...] NP LAB CYTOLOGY ORDERABLES Final Re sult [address] [address] [place] [address] Kulwinder Zuñiga/[place] [address] [facility] [place] [address] * Hepatitis C antibody (01/31/2021 2:47 PM DOCTOR OF NURSE ANESTHESIA) Hep C Ab Nonreactive Nonreactive CARMEN BRADY [...] last revised on 2020. Testing performed by: [facility], [address] [place] [address]., [id number] Blood specimen (specimen) 01/31/2021 2:47 PM DOCTOR OF NURSE ANESTHESIA 02/01/2021 9:25 AM DOCTOR OF NURSE ANESTHESIA Chanda Ivory EPIC PRELUDE ANALYST LAB MICROBIOLOGY - GENERA L ORDERABLES Final Result CARMEN JOSE ANTONIO (BLANCA) 1 [facility] Department of Laboratories [place], [place] [id number] from Last 3 Months or Most Recently Relevant to Health Maintenance Insurance [facility] MEDICAID IDPA [facility] BENEFITS [facility] Advance Directives For more information, please contact: [phone] * Full Code (Latest Code Status on [...] in case of cardiopulmonary arrest Care Teams Master Coastwise Yacht Relationship Specialty Start Date End Date Contreras Jung MD [address] [place] [address] [place] [address] PCP - General Family Medicine 02/25/24 No, Physician 05/15/21
--- OUTSIDE RECORDS SUMMARY | 2025-08-16 13:33 | XMS_ITS | Clinical Summary ---
Author Organization [facility] Address [address] [place] [address] Phone Care Team Providers Care Hot Wound Spring Production Supervisor Name Role Phone Keisha Randhawa MD Primary [...] Insurance MEDICAID [employer] Care Teams Hot Wound Spring Production Supervisor Relationship Specialty Start Date End Date Keisha Randhawa MD [address] [facility] [address] GARCIA [address] [place] [address] PCP - General Pediatrics 11/10/18
== END 2025-08-16 11:32 | disposition home or self-care (01) ==
LOC: ANHIMG 11:31
PROVIDERS: PCP Family Medicine; Visit Provider Surgery
DX: R10.13 Epigastric pain (principal)
CPT/HCPCS: 78227; A9537; J2805

== ENCOUNTER 2025-08-18 10:19 | Day surgery (SDC) | payer OTHER, SELFPAY ==
[2025-08-18] VITALS (10 sets, daily range): BP systolic 101–113; BP diastolic 55–70; PULSE 83–105; RESP 14–18; TEMP 36.5–36.9; O2SAT 95–100; BMI 23.4; BMI 23.8
--- NOTE | 2025-08-18 10:30 | PC.NURSE ---
[facility] has started construction of its new state of the art ER which will open Spring 2026. With this, we anticipate parking may be a challenge for some our surgical patients and families. Parking spaces are limited but are available for all Surgical, obstetrics, and ER patients sharing this lot. If you arrive and find you are having a hard time finding a parking space, please note that we understand the challenges, please drive around the hospital and park near Hospital Entrance 1. When you enter this entrance, you can ask a volunteer to direct or take you back to the surgical waiting area to check in. We appreciate everyone?s understanding of these expected challenges while we build for your future. Report to the Outpatient Waiting Room, entrance under the green pavilion located off [address], at time _115pm_ on date _[phone]_. Planned Procedure Time: _315pm_.? Time changes happen often and if your time is changed the preop area will call you the afternoon before. - You and your visitor will be asked to self-screen and do not enter if you have any COVID symptoms. Please call surgeon if you need to reschedule. - A mask is optional within the hospital at this time. Patients may have clear liquids (water, carbonated beverages, clear teas, apple juice) until 3 hours prior to surgery with a maximum of 20 ounces. - No food from midnight until time of surgery and no smoking, or chewing tobacco (or any form of nicotine). No chewing gum, candy or mints. Take only the following medications with a SIP of water on the morning of surgery: ___None DO NOT STOP ANY OF YOUR OTHER PRESCRIPTION MEDICATIONS PRIOR TO SURGERY EXCEPT THE FOLLOWING Hold all vitamins and supplements for 3 days per anesthesiologist. Medications to discontinue per physician Date to take last dose____ Please no make-up, nail kyrgyz, hairspray, perfume, deodorant, or body powder the day of surgery.? No jewelry (including any body piercings) or valuables the day of surgery, leave them at home.? Please take a shower or bath the night before, or the morning of, surgery with an antibacterial soap.? Wear comfortable, loose fitting clothing.? - Jewelry must be removed prior to entering the operating room.? Rings and piercings that are not removed may be cut off. - The hospital will not accept responsibility for valuables.? - Please leave all valuables, including medications, at home the day of surgery. If you are going home after surgery, a licensed local owner operator truck driver must drive you home.? - NO public transportation without another adult if you receive anesthesia. - We recommend that an adult stay with you for 24 hours following discharge. - We also recommend that you do not drive, make important decision, drink alcoholic beverages, or take any drugs that were not prescribed by your health care provider for at least 24 hours after your discharge time. Follow any additional instructions given to you from your surgeon. Telephone instructions given to __Josette__and asked if any additional questions and then verbalized understanding. Patient advised to call surgeon office or pre surgery nurse liaison [phone] if any additional questions.
--- OUTSIDE RECORDS SUMMARY | 2025-08-18 10:57 | XMS_ITS | Clinical Summary ---
Author Organization [facility] Address [address] [place] [address] Phone Care Team Providers Care Soil Conservation Teacher Name Role Phone Keisha Randhawa MD Primary [...] Insurance MEDICAID [employer] Care Teams Soil Conservation Teacher Relationship Specialty Start Date End Date Keisha Randhawa MD [address] [facility] [address] GARCIA [address] [place] [id number] PCP - General Pediatrics 11/10/18
--- OUTSIDE RECORDS SUMMARY | 2025-08-18 10:57 | XMS_ITS | Clinical Summary ---
Author Organization [facility] Address [address] [place] [address] Care Team Providers Care Cigar Brander Name Role Phone No, Physician Unavailable Contreras Jung MD Primary Care Provider [phone] Allergies No known active allergies Medications SUMAtriptan (IMITREX) 100 mg tablet TAKE 1 TABLET EVERY DAY BY ORAL ROUTE NEEDED FOR 9 DAYS. 4 Active rizatriptan MANUAL QA TESTER (MAXALT-MANUAL QA TESTER) 10 mg disintegrating tablet DISSOLVE 1 TABLET [...] on file Legal Sex Female 9:53 AM SOA INTEGRATION ARCHITECT Gender Identity Not on file Sexual Orientation [...] HEPATITIS C ANTIBODY Routine 01/31/2021 2:47 PM SOA INTEGRATION ARCHITECT Encounter for supervision of other normal in first trimester 12 weeks gestation of from Last 3 Months or Most Recently Relevant to Health Maintenance Results * Pap and HPV, reflex to HPV Genotypes (03/08/2024 2:30 PM CDT) CLINICAL INFORMATION: [facility] Comment:Routine exam LMP [facility] Comment:[phone] Previous Pap [facility] Comment:NONE GIVEN Prev. Bx [facility] Comment:NONE GIVEN SOURCE: [facility] Comment:Cervix, Endocervix Pap, specimen adequacy [facility] Comment: Satisfactory for evaluation. Endocervical/transformation zone component present. HPV interp [facility] Comment: Cytology Results: Negative for intraepithelial lesion or malignancy. COMMENTS [facility] Comment: This Pap test has been evaluated with computer assisted technology. Activity Therapy Specialist [facility] Comment: MMD, CT(ASCP) CT Screening Location: [place] [address] Comment [facility] Comment: EXPLANATORY NOTE: The Pap is a [...] Not Detected NOT DETECTED Kulwinder Zuñiga /Wendy ALCEY Comment: Not Detected High Risk HPV types (16,18,31,33,35,39,45,51,52, 56,58,59,66,68) were not detected. Other HPV types which cause anogenital lesions may be present. The significance of the other types of HPV in malignant processes has not been established. Methodology: Real Time PCR Thin prep 03/08/2024 2:30 PM CDT 03/09/2024 1:30 AM CDT Carmenza Grady NP LAB CYTOLOGY ORDERABLES Final Re sult [address] [place] [address] Kulwinder Zuñiga/[place] [address] [facility] [place] [id number] * Hepatitis C antibody (01/31/2021 2:47 PM SOA INTEGRATION ARCHITECT) Hep C Ab Nonreactive Nonreactive CARMEN BRADY [...] last revised on 2020. Testing performed by: [facility], [address] [place] [address]., [id number] Blood specimen (specimen) 01/31/2021 2:47 PM SOA INTEGRATION ARCHITECT 02/01/2021 9:25 AM SOA INTEGRATION ARCHITECT Chanda Ivory FIT MODEL LAB MICROBIOLOGY - GENERA L ORDERABLES Final Result CARMEN JOSE ANTONIO (BLANCA) [address] [facility] Department of Laboratories [place], [place] [phone] from Last 3 Months or Most Recently Relevant to Health Maintenance Insurance [facility] MEDICAID IDPA [facility] BENEFITS [facility] Advance Directives For more information, please contact: [phone] * Full Code (Latest Code Status on [...] in case of cardiopulmonary arrest Care Teams Cigar Brander Relationship Specialty Start Date End Date Contreras Jung MD [address] [place] [address] [place] [address] PCP - General Family Medicine 02/25/24 No, Physician 05/15/21
[2025-08-18] MEDS: KETOROLAC 15 MG/ML VIAL (*BKC) IV PUSH (13:55)
[2025-08-18] MEDS: ACETAMINOPHEN 500 MG TABLET 1000 MG PO (13:55)
--- NOTE | 2025-08-18 13:57 | P.PNAN_ITS ---
Anes - Initial Pre Proc Eval Procedure: Operation Date: 08/18/25 15:15 Proposed Procedures p Laparoscopic Cholecystectomy, Possible Open - Curtis Wall MD Date/Time: 08/18/25 13:57 Surgeon: Curtis Wall MD Pre Op Diagnosis: biliary colic Patient Data Age: 24 Gender: F Height: 1.68 m Weight: 65.9 kg Allergies Allergy/AdvReac Type Severity Reaction Status Date / Time No Known Allergies Allergy Verified 08/18/25 10:22 Home Medications ?Medication ?Instructions ?Recorded ?Confirmed ?Type No Home Medications 08/18/25 08/18/25 H istory Laboratory Tests 08/18/25 13:30 Amylase Pending Lipase Pending Patient hx anesthesia problems: none Family hx anesthesia problems: none Results Review: All pre-operative results and documents have been reviewed as part of the pre- operative evaluation. [facility] Past Medical History Medical History (Updated 08/18/25 @ 13:58 by Hayes Hancock MD) TMJ click poor opening Kidney pain (~02/07/25) Headache Strep pharyngitis Surgical History Surgical History (Updated 08/18/25 @ 13:59 by Hayes Hancock MD) H/O exploratory laparotomy as child for intestinal blockage H/O adenoidectomy Family History Family History Father Alcoholism Hypertension Diabetes mellitus Grandparent Hypertension Diabetes mellitus Depression Social History Social History Smoking status: Never smoker Living arrangements: with family Spiritual care concerns: No Anes - Eval Final PreProcedure Day of Procedure 08/18/25 13:57 Patient weight: normal Heart: regular rate and rhythm Lungs: clear to auscultation Airway: Mallampati scale class II and special considerations poor opening Neurological: alert and oriented Last oral intake: >/= 8 hours ASA classification: I Emergent: no Anesthetic plan: proceed Anesthesia type and monitoring: general ETT and standard monitoring Results Review: All pre-operative results and documents have been reviewed as part of the pre- operative evaluation. Informed Consent: The patient's anesthetic plan and its attendant risks and benefits were discussed with the patient/family/POA. Questions were solicited and answers provided to the satisfaction of the patient/family/POA.
[2025-08-18 14:10] LABS: Amylase 67 U/L (30-110); Lipase 51 U/L (23-300)
[2025-08-18 14:56] LABS: BEDSIDEPREGUCG Negative (Negative)
[2025-08-18] MEDS: LACTATED RINGERS 1,000 ML 30 ML IV CONT ×3 (14:56→18:03)
--- NOTE | 2025-08-18 15:31 | WPDHPUPDATE1 ---
History and Physical Update Update Date/Time: 08/18/25 15:31 History and Physical has been reviewed, including an updated exam of the patient. There are NO changes in the patient's condition. Risks, benefits, and alternatives have been discussed and questions answered. Patient agrees to proceed with procedure.
[2025-08-18] MEDS: BUPivacaine HCL 0.5% 10 ML AMP 30 ML INFILTRATE (15:50)
[2025-08-18] MEDS: LIDO 1%/EPINEPHRINE/PF 1:200,000 30 ML VIAL XX (15:51)
[2025-08-18] MEDS: ceFAZolin 2 GM in SODIUM CHLORIDE 0.9% IV 50 ML 100 ML IVPB (15:52)
--- NOTE | 2025-08-18 16:23 | S_PTH ---
PATIENT: Josette Buenrostro LOC: [facility] U#:[id number] AGE/SX: 24/F ROOM: RE08/18/[address]: Curtis Wall MD : 2000 BED: DIS: 08/18/2025 SPEC #: [id number] RECD: 08/19/25 07:43 STATUS: JASMIN REQ #: [id number] SLIME: 08/18/25 16:[address]: Curtis Wall DEPT: [facility] Surgical RECD BY: Shante Talavera ENTERED: 08/19/25 07:43 SP TYPE: Surgical OTHR DR: Nereida SmithMD Tissues: A - Gallbladder Procedures: Hematoxylin and Eosin Stain Gross and Microscopic Level 3
--- NOTE | 2025-08-18 17:09 | W.PM.PROC2 ---
Procedure Note - Detailed Date of Procedure 08/18/25 Pre-op Diagnosis Biliary colic, gallbladder dysfunction Post-op Diagnosis Same Procedure Performed Laparoscopic cholecystectomy Surgeon Curtis Wall MD Warehouse Representative Sammy Rajput, GINNY Anesthesia General Indications Patient is a 24-year-old female has been having and severe right upper quadrant abdominal pain associated nausea. She had abdominal ultrasound performed which showed no gallstones. No gallbladder wall thickening. Bile ducts normal. HIDA scan was then performed showing ejection fraction of 52% however injection of the cholecystokinin recreated all of her symptoms. She presents now for elective laparoscopic cholecystectomy due to biliary colic. Findings The gallbladder appeared to be normal in appearance. No gallbladder wall thickening was seen. No adhesions of the duodenum, omentum, or stomach to the gallbladder. Description of Procedure After informed consent was obtained patient brought to the operating room she was placed supine position and general endotracheal anesthesia was administered. The abdomen was then prepped and draped usual sterile fashion. A time-out was then performed correctly identifying the patient as well as procedure to be performed. She was given perioperative IV antibiotics. A small infraumbilical incision made the scalpel and the subcutaneous tissue spread the hemostat. Then with traction upwards on the anterior abdominal wall a Veress needle was placed into the abdomen without difficulty. The abdomen was then insufflated to adequate pneumoperitoneum of 15mmHg of CO2. A 5mm Optiview port was then used to enter the abdomen in the infra umbilical trocar port site. Once inside the abdomen I then placed additional trocar ports to include a 11mm epigastric trocar port, and 2 more right lateral subcostal 5mm trocar ports all under direct visualization. The gallbladder was visualized and it was not inflamed with no thickening of the gallbladder wall no pericholecystic fluid. There were no adhesions to the gallbladder. A laparoscopic grasper used to hold the gallbladder at the dome and the gallbladder was elevated over the right half liver towards the right shoulder. A 2nd grasper was used to hold the gallbladder at the infundibulum. I then proceeded to strip down the visceral peritoneum off of the infundibular gallbladder to identify the cystic duct. The cystic duct was then dissected circumferentially. The cystic artery was identified and dissected out circumferentially as well. Posterior wall the gallbladder at the infundibulum dissected free of the liver plate until the critical view was obtained. At this point I then placed 2 clips proximally cystic duct and 2 clips distally high on infundibular gallbladder. Cystic duct was then divided Endo Zulema. In a similar fashion cystic artery clipped and divided as well. The gallbladder was resected off the liver utilized electrocautery. At 1 point a small defect was made in the wall the gallbladder along the spillage of a small amount of normal-appearing non purulent bile. No gallstones were seen in the gallbladder no gallstones were spilled. Once the gallbladder completely freed from the liver it was placed into an Endo-Catch bag and brought out through the epigastric trocar port. Gallbladder and contents sent to pathology for examination. I then irrigated the right upper quadrant the abdomen the gallbladder fossa with sterile saline solution. Hemostasis was good. No evidence of bile leak was seen. I irrigated aspirated fluid until there was no bile staining to the fluid. Aspirated the fluid from the pelvis as well. I then removed all the trocar ports under direct visualization all port sites appeared hemostatic. The abdomen was then allowed to decompress. The epigastric 10mm trocar port fascial defect was then closed utilizing a 0 Vicryl suture placed in a figure-eight fashion. The skin edges in all the port sites were then approximated utilizing a running subcuticular 4 Monocryl suture. The incisions were then cleaned the skin glue sterile dressings were applied. The patient tolerated the procedure well no complications. All sponges, needles, and instrument counts were correct at the end procedure. EBL was _10__cc. The patient was awakened and taken to recovery in stable and satisfactory condition. Implants None Estimated Blood Loss 10 Drains No Packing No Pathology Yes (Gallbladder sent to pathology) Complications No immediate complications Condition Stable Disposition PACU [facility] Billing Surgery - Charge Forward: Surgery Billing
[2025-08-18] MEDS: ONDANSETRON INJ 4 MG/2 ML VIAL IV PUSH (17:57)
[2025-08-18] MEDS: fentaNYL CITRATE INJ (*CRX) 100 MCG/2 ML VIAL 25 MCG IV PUSH ×2 (18:02→18:08)
[2025-08-18] MEDS: oxyCODONE HCL (*CRX) 5 MG TAB IR PO (18:25)
== END 2025-08-18 19:05 | disposition home or self-care (01) ==
PROVIDERS: PCP Family Medicine; Visit Provider Surgery
PROC: 0FT44ZZ Resection of Gallbladder, Percutaneous Endoscopic Approach (ICD-10-PCS; CPT 47562; principal; 2025-08-18 15:15)
DX: K81.1 Chronic cholecystitis (principal); Z98.890 Other specified postprocedural states
CPT/HCPCS: 47562; 36415; 82150; 83690; 88304; J0690; A9270; J1200; J1885; J2003; J2004; J2250; J2405; J2704; J3010; J7030; J7120